=== PATIENT | male | born 1980 | race Two or more races ===

== ENCOUNTER → 2020-06-05 08:34 | Outpatient (BNVA) | payer BC, SELFPAY | PROVIDERS: PCP Nurse Practitioner Family; Referring Provider Nurse Practitioner Family; Visit Provider Nurse Practitioner | DX: Z76.89 Persons encountering health services in other specified circumstances (principal) ==

== ENCOUNTER 2020-06-25 07:39 | Day surgery (SDC) | payer BC, SELFPAY ==
[2020-06-25 08:02] VITALS: BMI 21.9
[2020-06-25 08:08] VITALS: BP 112/75; PULSE 53; RESP 16; TEMP 36.5; O2SAT 96
--- NOTE | 2020-06-25 08:19 | P.CONAN_ITS ---
FORMERLY [facility] Past Medical History Medical History History of diverticulitis Recent surgical procedure on lower extremity Smoker Family History Family History Father No problems noted. Mother No problems noted. Surgical History Surgical History History of facial surgery S/P hernia repair Social History Social History Alcohol intake: never Smoking Status: Current every day smoker Tobacco Type: Cigarette Packs Per Day: 0.25 Cigarettes Per Day: 5.0 Years Smoked: 8 Smoked in Last 30 Days: Yes Use of substances other than those prescribed or required for medical reasons: Yes Substance Use Type: Marijuana Substance Use Frequency: Occasionally Advance Directives: No Advance Directives Information Provided: Yes Meds Allergies Allergy/AdvReac Type Severity Reaction Status Date / Time No Known Allergies Allergy Verified 06/25/20 07:54 Home Medications Medication Instructions Recorded Confirmed Type mv,Ca,cpc-emmp-AC-lycopene tab PO 06/25/20 06/25/20 History [Centrum Men] Exam Exam Date and Time: June 25, 2020818 Height,Weight and Vital Signs: Height 5 ft 10 in Weight 69.4 kg Last Vital Signs Temp 97.7 F 06/25/20 08:08 Pulse 53 06/25/20 08:08 Resp 16 06/25/20 08:08 BP 112/75 06/25/20 08:08 Pulse Ox 96 06/25/20 08:08 Airway Mallampati Class: II TM Dist: >3cm Neck ROM: Full Loose/Missing/Broken Teeth: No (Rrr+[id number]) Heart: cta b/l Assessment and Plan Assessment Anesthesia Assessment: Anesthesia Plan Discussed, PAT Visit and Chart Reviewed Final Anesthetic Review NPO: Yes ASA Class: II Final Preanesthetic Review: No Changes in Pt Med Stat, Meds/Allgs Chart Reviewed, Consent Obtained/Reviewed and Anes Risks/Benef Reviewed Patient Risk: Low Procedure Risk: Low Assessment/Block/Sedation in SS: Assess/Block/Sedation-SS Anesthetic Plan Anesthetic Plan: MAC: Disposition: Standard PACU
--- NOTE | 2020-06-25 08:20 | P.OP_ITS ---
Operative Note Operative Note Narrative: Date of procedure: 06/25/20 Post-op diagnosis: other (Gastritis, colon polyp, diverticulosis, hemorrhoids) Procedure: FLEXIBLE TRANSORAL UPPER GASTROINTESTINAL ENDOSCOPY WITH BIOPSIES AND COLONOSCOPY TILL CECUM WITH BIOPSY UPPER ENDOSCOPY Consent: Indications for the procedure and potential complications of bleeding, perforation, reaction to medications and missed diagnosis were discussed with the patient and informed consent was obtained. Instrument: Olympus GIF H 190 mid size upper endoscope and Olympus PCF H 190 L variable stiffness pediatric colonoscope Monitoring: Vital signs and clinical assessment, continuous EKG monitoring, Pulse oximetry, Carbon Dioxide monitoring and blood pressure monitoring were done throughout the procedure. Procedure: The patient was placed in the left lateral decubitis position and pre-procedure medications were administered and a bite block was placed. The endoscope was inserted into the mouth and advanced under direct vision to the third part of duodenum. Mid size upper endoscope was removed and a pediatric colonoscope was passed to the proximal jejunum. A careful inspection was made as the upper endoscope was withdrawn including a retroflexed examination of the proximal stomach; Findings and interventions are described below. Findings: Larynx: Normal Esophagus: GE junction at 44 cms. No esophagitis or Barretts Stomach: Mild gastric erythema. Biopsies were obtained. Grade 2 flap valve on retroflexed examination of the cardia. Duodenum/jejunum: Normal bulb, descending duodenum and proximal jejunum - biopsies were obtained from 4th part of duodenum. Intervention: Biopsies as noted above COLONOSCOPY PROCEDURE NOTE Consent: Indications for the procedure and potential complications of bleeding, perforation, reaction to medications and missed diagnosis were discussed with the patient and informed consent was obtained. Instrument: Olympus PCF H 190 L variable stiffness pediatric colonoscope Monitoring: Vital signs and clinical assessment, intermittent blood pressure monitoring, continuous EKG monitoring, Pulse oximetry and Carbon Dioxide monitoring were done throughout the procedure. Colon withdrawl time was 18 minutes. Procedure: The patient was placed in the left lateral decubitis position and pre-procedure medications were administered. After a digital rectal examination of the ano-rectum, the video colonoscope was inserted into the rectum and advanced through the colon to the cecum. The colonoscope was slowly withdrawn in a retrograde panoramic fashion and the colon mucosa was carefully examined including a retroflexed view of the rectum. Findings and interventions are described below. Procedure Difficulty: Without difficulty Findings: Terminal Ileum: Distal 8 to 10 cms was examined and appeared normal Cecum: Normal Ascending Colon: Normal Transverse Colon: A 4-5 mm sessile polyp removed with a cold bx Descending Colon: Moderate diverticulosis Sigmoid Colon: Moderate diverticulosis Rectum: Normal Ano-rectum: Small internal hemorrhoids Colon preparation: Good after some irrigation. Impression and Post Procedure Diagnosis: Endoscopy Findings: STOMACH: Mild gastritis DUODENUM: Normal - biopsied. Colonoscopy Findings: One small polyps removed Moderate diverticulosis seen in the left colon Small hemorrhoids on retroflexed exam. Plan: Await pathology results Patient has an appointment on 07/10/20 in the GI Clinic with Alexa Vega NP . Repeat Colonoscopy interval based on path results - in 5 years if polyps are adenomatous and 10 years if polyps are hyperplastic. Above findings were reviewed with the patient and colon polyps and diverticulosis handouts were given in the discharge area Surgeon: Lauren Robb MD Anesthesia: MAC (Dr Dennis) Manager Marketing Sales: Garrett Masters Estimated blood loss (mL): 0 Pathology: other (A. Gastric antrum, B. duodenum, C. TC polyp x 1) Condition: stable Disposition: PACU
--- NOTE | 2020-06-25 08:20 | MHC.SHP ---
Pre-Procedural Eval Section A The patient is an INPATIENT: No The History & Physical has been completed within 30 days and I have reviewed it.: No Section B Chief Complaint: Diverticulitis Details of Present Illness: Chronic constipation, history of diverticulitis, abnormal CT scan of the duodenum Relevant Family History (Specify if Yes): No Relevant Social History: Tobacco Use ( former smoker) Present Medications: see Short Stay Collaborative assessment Medical History: No relevant PMH History of Previous Operations: Relevant previous surgery/procedure and date(s) (facial reconstruction leg surgery ) Allergies: Allergies Allergy/AdvReac Type Severity Reaction Status Date / Time No Known Allergies Allergy Verified 06/25/20 07:54 Review of Systems Sugical H&P ROS: Negative: Constitution and Cardiovascular and Yes, Specify: Gastrointestinal (constipation) Exam Surgical H&P Exam: Normal: Heart, Normal: Lungs and Normal: Extremities and Significant Findings: Abdomen (Minimal LLQ tenderness) Plan Diagnosis/Plan: Unchanged Patient has been examined and remains a candidate for the planned procedure
[2020-06-25] MEDS: Lactated Ringers 1,000 ML 100 ML IVCONT (08:33)
[2020-06-25 09:42] VITALS: BP 96/52; PULSE 54; RESP 16; TEMP 36.2; O2SAT 97
[2020-06-25 09:50] VITALS: BP 95/62; PULSE 45; RESP 16; O2SAT 100
--- NOTE | 2020-06-25 10:04 | HO.POSTANES ---
Post Anesthesia Evaluation Post Anesthesia Evaluation Vital Signs: Vital Signs Temp Pulse Resp BP Pulse Ox 06/25/20 09:50 45 L 16 95/62 100 06/25/20 09:42 97.2 F 54 16 96/52 L 97 06/25/20 08:08 97.7 F 53 16 112/75 96 Anesthesia: Monitored Mental Status: Awake Pain Control: Satisfactory Nausea/Vomiting: None Hydration: Adequate Anesthesia-Related Issues: No Anes. Related Issues
[2020-06-25 10:05] VITALS: BP 95/68; PULSE 56; RESP 16; O2SAT 100
--- NOTE | 2020-06-25 10:18 | PC.NURSE ---
1015- AWAKE ALERT MICHELLE PO NO N/V NOTED MONITORS AND IVF DCD TOTAL IN IS 300 ML LR, ASST OOB TO BS CHAIR STEADY IV DC'D TIP INTACT PRESSURE AND DRESSING TO SITE. DRESSED SELF CALL VALDEZ IN REACH, PLAN TO AMB TO DISCHARGE.
== END 2020-06-25 10:43 | disposition home or self-care (01) ==
PROVIDERS: Visit Provider Internal Medicine Gastroenterology
PROC: (CPT 45380; principal; 2020-06-25 08:30)
DX: K57.92 Diverticulitis of intestine, part unspecified, without perforation or abscess without bleeding (principal); D12.3 Benign neoplasm of transverse colon; K57.30 Diverticulosis of large intestine without perforation or abscess without bleeding; K64.8 Other hemorrhoids; K59.04 Chronic idiopathic constipation; K29.60 Other gastritis without bleeding; F17.210 Nicotine dependence, cigarettes, uncomplicated
CPT/HCPCS: 45380; 88305; 88342

== ENCOUNTER → 2020-07-10 08:29 | Outpatient (BNVA) | payer BC, SELFPAY | PROVIDERS: Visit Provider Nurse Practitioner ==

== ENCOUNTER → 2020-07-10 08:29 | Outpatient (BNVA) | payer BC, SELFPAY | PROVIDERS: Visit Provider Nurse Practitioner | DX: Z76.89 Persons encountering health services in other specified circumstances (principal) ==

== ENCOUNTER 2020-08-02 07:44 | Emergency (ER) | payer BC, SELFPAY ==
[2020-08-02 07:50] VITALS: BP 141/97; PULSE 78; RESP 16; TEMP 36.6; O2SAT 98; BMI 22.5
--- NOTE | 2020-08-02 08:30 | ED.GENADULT ---
HPI - General Adult General Chief complaint: General Medical Stated complaint: covid symptoms Time Seen by Provider: 08/02/20 08:09 Source: patient Mode of arrival: ambulatory Limitations: no limitations History of Present Illness HPI narrative: 40-year-old male presenting to the ED with URI complaints which includes chills, body aches, sore throat and a dry cough for the past 2 days. 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 Denies recent travel. Denies any other symptoms complaints or concerns at this time. Related Data Home Medications Medication Instructions Recorded Confirmed Centrum Men tab PO 06/25/20 06/25/20 Previous Rx's Medication Instructions Recorded acetaminophen [Tylenol] 650 mg PO Q6H PRN #10 tab 08/02/20 azithromycin See Rx Instructions .ROUTE 08/02/20 .COMPLEX #6 tab cyclobenzaprine 10 mg PO TID PRN #10 tab 08/02/20 ibuprofen 800 mg PO Q8H PRN #14 tab 08/02/20 Allergies Allergy/AdvReac Type Severity Reaction Status Date / Time No Known Allergies Allergy Verified 07/10/20 08:29 Review of Systems Review of Systems: Constitutional : No Fever, + Chills, No fatigue, No Malaise ENT/Mouth : + sore throat, No runny nose Eyes: No Discharge Cardiovascular : No Chest Pain, No SOB Respiratory : + Cough, No Sputum, No Wheezing, No Smoke Exposure, No Dyspnea Gastrointestinal : No Nausea, No Vomiting, No Diarrhea Genitourinary : No irregular bleeding, No Dysuria, No Urinary Frequency, No Hematuria, No Urinary Incontinence, No Urgency, No Flank Pain, Musculoskeletal : No Myalgia Skin : No rash Neuro : No Headache Yes all other systems are reviewed and are negative [facility] Past Medical History Attestation statement: The following information was validated with the patient. Medical History Diverticulosis History of diverticulitis Recent surgical procedure on lower extremity Smoker Surgical History History of facial surgery Hx of colonoscopy Hx of esophagogastroduodenoscopy S/P hernia repair Family History Family History Father No problems noted. Mother No problems noted. Social History Social History Alcohol intake: current Alcohol intake frequency: holidays/special occasions only Smoking Status: Current every day smoker Tobacco Type: Cigarette Packs Per Day: 0.25 Cigarettes Per Day: 5.0 Years Smoked: 8 Use of substances other than those prescribed or required for medical reasons: No Substance Use Type: Marijuana Advance Directives: No Advance Directives Information Provided: Yes Physical Exam Vital Signs: Vital Signs: Last Vital Signs Temp 97.8 F 08/02/20 07:50 Pulse 78 08/02/20 07:50 Resp 16 08/02/20 07:50 BP 141/97 H 08/02/20 07:50 Pulse Ox 98 08/02/20 07:50 Body Mass Index 22.5 vital signs have been reviewed as normal and appeared to be correct. Blood pressure normal. Heart rate normal. Respiration rate normal. Temperature normal. Oxygen saturation normal. Appearance: Alert. Oriented X3. No acute distress. Head: Normal external exam. Normocephalic. Eyes: PERRLA. EOMI. Conjunctiva and sclera normal. Eyelids normal. ENT: EAC normal. TM's Normal. Pharynx normal. Uvula midline. Moist mucous membranes. No trismus noted. No drooling noted. No muffled voice noted. Neck: Normal inspection. Neck supple. FROM. No adenopathy. No meningeal signs. CVS: Normal heart rate and rhythm. Heart sound normal. No murmurs noted. Pulses normal throughout. Respiratory: No respiratory distress. Painless inspiration. Breath sounds normal. No wheezes/rales/rhonchi noted. Chest nontender. No accessory muscle usage noted or decreased air movement noted. Back: Full range of motion noted. Skin: Skin warm and dry. Normal skin color. Normal skin turgor. No rashes/lesions/lacerations noted. Extremities: Extremities exhibit normal range of motion. Extremities nontender. Neuro: Oriented X 3. No motor deficit. No sensory deficit. Reflexes normal. Medical Decision Making Medical Records Medical records reviewed: Yes I reviewed the patient's medical records. Lab Data Lab results reviewed: Yes I reviewed the patient's lab results. Discharge Plan Discharge Clinical Impression: Acute viral syndrome Patient Disposition: Home, Self-Care Instructions: Viral Syndrome (ED), COVID-19 (Coronavirus Disease 2019) (ED) Additional Instructions: Based on your symptoms and history we have sent a COVID-19. Although your RESULT IS PENDING at this time. RESULTS should return within 72 hours. At this time you will be contacted with either NEGATIVE OR POSITIVE results. -Please wait until we contact you for your results. At this time you will be okay for discharge. Please plan for self quarantine for up to 14 days. Do not expose yourself to others. You may not go to work. If testing does come back negative you may return to activities as long as you are no longer having any symptoms for at least 3 days. Please continue to follow cold instructions and wash your hands frequently. You may take Tylenol as directed on the bottle for pain or fever. Patient seen in the emergency department on 08/02/2020 and should be excused from work until negative test results AND until 72 hours without any symptoms AND at least 10 days have passed since symptoms first appeared or since last exposure to COVID-19 positive patient CDC Guidelines for home isolation: - Stay away from others - WEAR A MASK if you are sick AND STAY HOME - Cover your mouth and nose with a tissue when you cough or sneeze. Dispose of tissues in a lined trash can and wash your hands immediately with soap and water for at least 20 seconds. If soap and water are not available, clean hands with alcohol-based hand gravure press operator that contains at least 60% alcohol. - Clean your hands often with soap and water for at least 20 seconds - Avoid touching your eyes, nose and mouth with unwashed hands - Do not share dishes, drinking glasses, cups, eating utensils, towels, or bedding with other people in your home. After using these items, wash them thoroughly with soap and water or put in the welding machine operator electroslag. - Clean high-touch surfaces in your isolation area ( sick room and bathroom) every day; let a caregiver clean and disinfect high-touch surfaces in other areas of the home. Clean the area or item with soap and water or another detergent if it is dirty. Then, use a household disinfectant. - Limit contact with pets and animals: If you must care for a pet, wash your hands before and after interacting with them). Prescriptions: New cyclobenzaprine 10 mg tablet 10 mg PO TID PRN (Reason: muscle spasm) Qty: 10 RF: 0 acetaminophen [Tylenol] 325 mg tablet 650 mg PO Q6H PRN (Reason: fever or pain) Qty: 10 RF: 0 azithromycin 250 mg tablet See Rx Instructions .ROUTE .COMPLEX Qty: 6 RF: 0 ibuprofen 800 mg tablet 800 mg PO Q8H PRN (Reason: pain) Qty: 14 RF: 0 No Action Centrum Men 8 mg iron- 200 mcg-600 mcg Tablet PO RF: 0 Referrals: Physician,Unknown [Primary Care Provider] - 2 days (your pcp ) Stand Alone Forms: Work/School Release
[2020-08-02 09:12] LABS: Influenza A PCR NEGATIVE (Negative); Influenza B PCR NEGATIVE (Negative); Resp Syncy Virus RNA Qual PCR NEGATIVE (Negative); SARS COV2 PCR INHOUSE NEGATIVE (Negative)
== END 2020-08-02 08:38 | disposition home or self-care (01) ==
PROVIDERS: Physician Assistant Medical; Emergency Provider Emergency Medicine Emergency Medical Services
DX: B34.9 Viral infection, unspecified (principal); Z20.828 Contact with and (suspected) exposure to other viral communicable diseases; J02.9 Acute pharyngitis, unspecified; F17.200 Nicotine dependence, unspecified, uncomplicated
CPT/HCPCS: 0241U; 99283; 99284

== ENCOUNTER 2020-12-21 15:02 | Emergency (ER) | payer BC, SELFPAY ==
--- NOTE | ~2020-12-21 | CT_ITS ---
EXAMINATION: CT abdomen pelvis w con CLINICAL INFORMATION: Reason for Exam LLQ pain COMPARISON: No prior CT available for comparison. TECHNIQUE: Multidetector volumetric imaging was performed from the superior aspect of the liver through the pubic symphysis 85 mL Omnipaque 350 injected. Sagittal and coronal reformatted images were obtained on the technologist's workstation. This CT examination was performed using dose optimization techniques as appropriate, variously including the following: *Automated exposure control *Adjustment of mA and/or kV according to patient size (this includes techniques or standardized protocols for targeted exams where dose is matched to indication/reason for exam; i.e. extremities or head) *Use of iterative reconstruction technique DLP: 339 mGy-cm FINDINGS: LOWER THORAX: Included lung bases are clear. HEPATOBILIARY: No focal hepatic lesions. No biliary ductal dilatation. GALLBLADDER: Gallbladder unremarkable. SPLEEN: Spleen is normal in size. PANCREAS: No focal mass or ductal dilatation. STOMACH AND GASTROINTESTINAL TRACT: Stomach is grossly unremarkable. There is a segment of the sigmoid colon roughly 12 cm which exhibits circumferential wall thickening edema and mild pericolic fat stranding. Nonspecific CT appearance however would suggest diffuse inflammation which could be sequela of infection colitis versus inflammatory bowel disease IBD among others. No CT evidence of appendicitis. ADRENALS: No adrenal nodules. KIDNEYS/URETERS: No hydronephrosis, stones or solid mass lesions. URINARY BLADDER: Partially decompressed. PELVIC VISCERA: Unremarkable PERITONEUM: No free air or fluid. LYMPH NODES: No lymphadenopathy. VASCULAR:Abdominal aorta normal in size, no aneurysm found. BONES, ABDOMINAL WALL AND SOFT TISSUES: Age-appropriate changes of the spine and skeletal system, no destructive osteolytic or osteosclerotic bone lesion found CT/CT abdomen pelvis w con IMPRESSION: Extensive circumferential wall thickening edema swelling of the sigmoid colon along with mild pericolic fat stranding and fluid suggesting colitis, which could be sequela of infection versus inflammatory among others. Please correlate clinically. No CT evidence of abscess. No evidence of significant diverticular disease. No CT evidence of bowel perforation. No free air. Remainder of the CT scan otherwise normal.
[2020-12-21 15:12] VITALS: BP 119/72; PULSE 62; RESP 15; TEMP 36.9; O2SAT 99; BMI 22.5
[2020-12-21 16:00] VITALS: BP 120/82; PULSE 54; RESP 18; TEMP 36.9; O2SAT 100
--- NOTE | 2020-12-21 16:09 | PC.NURSE ---
Pt report no BM since 2 days ago. He has since been having some small amounts of mucous discharge from his rectum when he attempts to have a BM.
--- NOTE | 2020-12-21 16:31 | ED.ABDPAIN ---
HPI - Abdominal Pain General Chief Complaint: Abdominal Pain Stated Complaint: Colitis Time Seen by Provider: 12/21/20 16:19 Source: patient Mode of arrival: ambulatory Limitations: no limitations History of Present Illness HPI narrative: Patient comes emergency room complaining of left lower quadrant pain for 1 week. Patient states he is known to have episodes of diverticulitis. Patient states he has been taking antibiotic, does not remember the name, states he had leftover antibiotic from his last episode of colitis. Patient states usually his symptoms resolved within 3 days, however this time it has been ongoing for about a week. Patient also complaining of nausea and vomiting. Of dysuria. MD elicited complaint: abdominal pain Related Data Home Medications Medication Instructions Recorded Confirmed Centrum Men tab PO 06/25/20 06/25/20 Previous Rx's Medication Instructions Recorded acetaminophen [Tylenol] 650 mg PO Q6H PRN #10 tab 08/02/20 azithromycin See Rx Instructions .ROUTE 08/02/20 .COMPLEX #6 tab cyclobenzaprine 10 mg PO TID PRN #10 tab 08/02/20 ibuprofen 800 mg PO Q8H PRN #14 tab 08/02/20 ciprofloxacin HCl 500 mg PO BID #20 tab 12/21/20 metronidazole 500 mg PO BID #20 tab 12/21/20 tramadol 50 mg PO TID PRN #14 tab 12/21/20 Allergies Allergy/AdvReac Type Severity Reaction Status Date / Time No Known Allergies Allergy Verified 07/10/20 08:29 Review of Systems Review of Systems Constitutional : No Weight loss, No Fever, No Chills, No Night Sweats, No Fatigue, No Malaise ENT/Mouth : No Hearing loss, No Ear Pain, No Nasal Congestion, No Sinus Pain, No Hoarseness, No sore throat, No Rhinorrhea, No Swallowing Difficulty Eyes: No Eye Pain, No Swelling, No Redness, No Foreign Body, No Discharge, No Vision Changes Cardiovascular : No Chest Pain, No SOB, No Dyspnea on Exertion, No Orthopnea, No Edema, No Palpitations Respiratory : No Cough, No Sputum, No Wheezing, No Smoke Exposure, No Dyspnea Gastrointestinal : Complaining of nausea vomiting, No Diarrhea, No Constipation, complaining of left lower quadrant pain, No Hematochezia, No Melena Genitourinary : no irregular bleeding, No Dysuria, No Urinary Frequency, No Hematuria, No Urinary Incontinence, No Urgency, No Flank Pain, No Urinary Flow Changes, No Hesitancy Musculoskeletal : No joint pain, No Myalgias, No Joint Swelling Skin : No Skin Lesions, No rash Neuro : No Weakness, No Numbness, No Paresthesias, No Loss of Consciousness, No Dizziness, No Headache Psych : No Anxiety/Panic, No Depression, No SI/HI/AH/VH, No Social Issues, Heme/Lymph: No Bruising, No Bleeding,No Lymphadenopathy Endocrine : No Polyuria, No Polydipsia, No Temperature Intolerance Physical Exam Vital Signs: Vital Signs: Last Vital Signs Temp 98.8 F 12/21/20 18:08 Pulse 53 12/21/20 18:08 Resp 18 12/21/20 18:08 BP 97/45 L 12/21/20 18:08 Pulse Ox 98 12/21/20 18:08 Body Mass Index 22.5 Appearance: Alert. Oriented X3. No acute distress. Eyes: Pupils equal, round and reactive to light. ENT: Pharynx normal. Neck: Normal inspection. Neck supple. No lymph nodes noted. No crepitus CVS: Normal heart rate and rhythm. Pulses normal. Normal S1 and S2 Respiratory: No respiratory distress. Breath sounds normal. No Wheezing. No rales Abdomen: Soft, tenderness to palpation over the left lower quadrant. No rigidity. No distention. Skin: Skin warm and dry. Normal skin color. Normal skin turgor. Extremities: No lower extremity edema. No lower extremity edema. No Lacerations. No Rash Neuro: Oriented X 3. No motor deficit. No sensory deficit. Moving all extermities. No slurred speech. Course Course Course Narrative: Patient states that he feels much better, discussed with the patient his colitis, patient was given the 1st dose of antibiotics p.o. in the emergency room, levofloxacin and metronidazole. 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 MDM - Abdominal Pain Lab Data Result diagrams: 12/21/20 16:45 12/21/20 16:45 Labs: Lab Results 12/21/20 12/21/20 12/21/20 Range/Units 16:45 16:45 18:28 WBC 10.0 (4.8-10.8) X10*3/uL RBC 5.06 (4.60-5.80) X10*6/uL Hgb 14.6 (14.0-18.0) g/dl Hct 45.7 (42-52) % MCV 90.3 (80-98) fL MCH 28.9 (27.0-33.0) pg MCHC 31.9 (31.0-36.0) g/dl RDW 12.8 (11.0-16.0) % Plt Count 220 (160-400) X10*3/uL MPV 9.9 (9.4-12.4) fL Immature Gran % (Auto) 0.2 (0.0-0.4) % Neut % (Auto) 71.8 (45-73) % Lymph % (Auto) 16.4 L (20-40) % [place] % (Auto) 10.9 (2-11) % Eos % (Auto) 0.4 (0-4) % Baso % (Auto) 0.3 (0-2) % Lymph # (Auto) 1.6 (1.2-4.9) X10*3/uL [place] # (Auto) 1.1 (0.1-1.2) X10*3/uL Eos # (Auto) 0.0 (0.0-0.4) X10*3/uL Baso # (Auto) 0.0 (0.0-0.2) X10*3/uL Abs Immat Gran (auto) 0.02 (0.00-0.03) X10*3/uL Absolute Neuts (auto) 7.2 (2.0-8.3) X10*3/uL Absolute Nucleated RBC 0.000 (0.0-0.012) X10*3/uL Nucleated RBC % (auto) 0.0 (0.0-0.2) /100WBC Sodium 138 (135-145) mmol/L Potassium 4.3 (3.3-5.1) mmol/L Chloride 101 (96-108) mmol/L Carbon Dioxide 27 (22-29) mmol/L Anion Gap 14 (12-20) BUN 12 (9-16) mg/dL Creatinine 0.86 (0.5-1.4) mg/dL Estim Creat Clear Calc 117.3 Estimated GFR > 60 Random Glucose 75 (60-115) mg/dL Calcium 9.4 (8.4-10.2) mg/dL Total Bilirubin 1.2 H (0.0-1.0) mg/dL Direct Bilirubin 0.4 (0.0-0.5) mg/dL AST 20 (5-37) U/L ALT 14 (0-40) U/L Alkaline Phosphatase 119 H (39-117) U/L Total Protein 7.4 (6.5-8.0) g/dL Albumin 4.4 (3.5-5.0) g/dL Lipase 25 (8-78) U/L Urine Color YELLOW Urine Appearance CLEAR Urine pH 6.0 (5.0-8.0) Ur Specific [place] 1.020 (1.005-1.025) Urine Protein NEG (NEG-TRACE) MG/DL Urine Glucose (UA) NEG (NEG) MG/DL Urine Ketones 5 (NEG) MG/DL Urine Blood TRACE (NEG) Urine Nitrite NEG (NEG) Ur Leukocyte Esterase NEG (NEG) Urine RBC 0-2 (0) /HPF Urine WBC 0 (0-4) /HPF Ur Squamous Epith Cells NONE /LPF Urine Bacteria NONE /LPF Imaging Data CT scan - abdomen: Radiologist's impression: FINDINGS: LOWER THORAX: Included lung bases are clear. HEPATOBILIARY: No focal hepatic lesions. No biliary ductal dilatation. GALLBLADDER: Gallbladder unremarkable. SPLEEN: Spleen is normal in size. PANCREAS: No focal mass or ductal dilatation. STOMACH AND GASTROINTESTINAL TRACT: Stomach is grossly unremarkable. There is a segment of the sigmoid colon roughly 12 cm which exhibits circumferential wall thickening edema and mild pericolic fat stranding. Nonspecific CT appearance however would suggest diffuse inflammation which could be sequela of infection colitis versus inflammatory bowel disease IBD among others. No CT evidence of appendicitis. ADRENALS: No adrenal nodules. KIDNEYS/URETERS: No hydronephrosis, stones or solid mass lesions. URINARY BLADDER: Partially decompressed. PELVIC VISCERA: Unremarkable PERITONEUM: No free air or fluid. LYMPH NODES: No lymphadenopathy. VASCULAR:Abdominal aorta normal in size, no aneurysm found. BONES, ABDOMINAL WALL AND SOFT TISSUES: Age-appropriate changes of the spine and skeletal system, no destructive osteolytic or osteosclerotic bone lesion found CT/CT abdomen pelvis w con IMPRESSION: Extensive circumferential wall thickening edema swelling of the sigmoid colon along with mild pericolic fat stranding and fluid suggesting colitis, which could be sequela of infection versus inflammatory among others. Please correlate clinically. No CT evidence of abscess. No evidence of significant diverticular disease. No CT evidence of bowel perforation. No free air. Remainder of the CT scan otherwise normal. Discharge Plan Discharge Clinical Impression: Colitis Patient Disposition: Home, Self-Care Instructions: Colitis (ED) Prescriptions: New ciprofloxacin HCl 500 mg tablet 500 mg PO BID Qty: 20 RF: 0 metronidazole 500 mg tablet 500 mg PO BID Qty: 20 RF: 0 tramadol 50 mg tablet 50 mg PO TID PRN (Reason: pain) Qty: 14 RF: 0 No Action Centrum Men 8 mg iron- 200 mcg-600 mcg Tablet PO RF: 0 cyclobenzaprine 10 mg tablet 10 mg PO TID PRN (Reason: muscle spasm) Qty: 10 RF: 0 acetaminophen [Tylenol] 325 mg tablet 650 mg PO Q6H PRN (Reason: fever or pain) Qty: 10 RF: 0 azithromycin 250 mg tablet See Rx Instructions .ROUTE .COMPLEX Qty: 6 RF: 0 ibuprofen 800 mg tablet 800 mg PO Q8H PRN (Reason: pain) Qty: 14 RF: 0 Referrals: Lauren Robb MD [Physician] - 2 days PMF Past Medical History Medical History Diverticulosis History of diverticulitis Recent surgical procedure on lower extremity Smoker Surgical History History of facial surgery Hx of colonoscopy Hx of esophagogastroduodenoscopy S/P hernia repair Family History Family History Father No problems noted. Mother No problems noted. Social History Social History Alcohol intake: never Smoking Status: Former smoker Tobacco Type: Cigarette Packs Per Day: 0.25 Cigarettes Per Day: 5.0 Years Smoked: 8 Substance Use Type: Marijuana Substance Use Frequency: Occasionally Advance Directives: No Advance Directives Information Provided: Yes
[2020-12-21] MEDS: 0.9 % Sodium Chloride 1,000 ML 999 ML IVCONT (16:49)
[2020-12-21] MEDS: ondansetron HCL 4 MG/2 ML VIAL IVPUSH (16:52)
[2020-12-21] MEDS: Morphine Sulfate 4 MG/ML CARTRIDGE IVPUSH (16:52)
[2020-12-21 17:14] LABS: MANUAL DIFF FLAG NO
[2020-12-21 17:18] LABS: Basophils Percent Auto 0.3 % (0-2); Eosinophils Percent Auto 0.4 % (0-4); Hematocrit 45.7 % (42-52); Hemoglobin 14.6 g/dl (14.0-18.0); Imm Gran Abs Auto 0.02 X10*3/uL (0.00-0.03); Imm Gran Pct Auto 0.2 % (0.0-0.4); Lymphocytes Absolute Auto 1.6 X10*3/uL (1.2-4.9); Lymphocytes Percent Auto 16.4 % (20-40); Mean Corpuscular HGB Conc 31.9 g/dl (31.0-36.0); Mean Corpuscular Hemoglobin 28.9 pg (27.0-33.0); Mean Corpuscular Volume 90.3 fL (80-98); Mean Platelet Volume 9.9 fL (9.4-12.4); Monocytes Absolute Auto 1.1 X10*3/uL (0.1-1.2); Monocytes Percent Auto 10.9 % (2-11); Neutrophils Absolute Auto 7.2 X10*3/uL (2.0-8.3); Neutrophils Percent Auto 71.8 % (45-73); Platelet Count 220 X10*3/uL (160-400); Red Blood Count 5.06 X10*6/uL (4.60-5.80); Red Cell Distribution Width 12.8 % (11.0-16.0)
[2020-12-21 17:43] LABS: Alanine Aminotransferase 14 U/L (0-40); Albumin Level 4.4 g/dL (3.5-5.0); Alkaline Phosphatase 119 U/L (39-117); Anion Gap 14 (12-20); Aspartate Amino Transferase 20 U/L (5-37); Bilirubin Direct 0.4 mg/dL (0.0-0.5); Bilirubin Total 1.2 mg/dL (0.0-1.0); Blood Urea Nitrogen 12 mg/dL (9-16); Calcium 9.4 mg/dL (8.4-10.2); Carbon Dioxide 27 mmol/L (22-29); Chloride 101 mmol/L (96-108); Creatinine Clr Calc Pharmacy 117.3; Estimated Glomerular Filt Rate > 60; Glucose Random 75 mg/dL (60-115); Lipase 25 U/L (8-78); Potassium 4.3 mmol/L (3.3-5.1); Sodium 138 mmol/L (135-145); Total Protein 7.4 g/dL (6.5-8.0)
[2020-12-21 18:08] VITALS: BP 97/45; PULSE 53; RESP 18; TEMP 37.1; O2SAT 98
[2020-12-21 18:42] LABS: Glucose Urine UA NEG (NEG); Leukocyte Esterase Urine NEG (NEG); Nitrite Urine NEG (NEG); Urine Blood TRACE (NEG); Urine Ketones 5 MG/DL (NEG); Urine Protein NEG (NEG-TRACE)
[2020-12-21 18:43] LABS: Appearance Urine CLEAR; Color Urine YELLOW
[2020-12-21] MEDS: iohexoL 350 MG/ML 100 ML INFUS..BTL IV (18:44)
[2020-12-21 18:50] LABS: RBC Urine 0-2 /HPF (0); WBC Urine 0 /HPF (0-4)
[2020-12-21] MEDS: metroNIDAZOLE 500 MG TABLET PO (19:51)
[2020-12-21] MEDS: levoFLOXacin 500 MG TABLET PO (19:51)
== END 2020-12-21 20:20 | disposition home or self-care (01) ==
PROVIDERS: Emergency Provider Emergency Medicine
DX: K52.9 Noninfective gastroenteritis and colitis, unspecified (principal); R10.32 Left lower quadrant pain
CPT/HCPCS: 36415; 74177; 80048; 80076; 81001; 83690; 85025; 96361; 96374; 96375; 99284; J2270; J2405; Q9967

== ENCOUNTER → 2020-12-27 13:46 | Outpatient (BNVA) | payer BC, SELFPAY | PROVIDERS: Visit Provider Nurse Practitioner ==

== ENCOUNTER → 2021-03-07 14:02 | Outpatient (BNVA) | payer BC, SELFPAY | PROVIDERS: Visit Provider Nurse Practitioner ==

== ENCOUNTER 2021-03-17 | Outpatient (REF) | payer BC, SELFPAY | END 2021-03-17 00:01 | disposition home or self-care (01) | LOC: HO.LNP | PROVIDERS: Visit Provider Hospitalist | DX: Z20.822 Contact with and (suspected) exposure to COVID-19 (principal); B34.9 Viral infection, unspecified | CPT/HCPCS: U0003; U0005 ==

== ENCOUNTER → 2021-09-11 10:44 | Outpatient (BNVA) | payer MEDICAID, SELFPAY | PROVIDERS: PCP Nurse Practitioner Family; Referring Provider Nurse Practitioner Family; Visit Provider Nurse Practitioner | DX: K59.04 Chronic idiopathic constipation (principal); K57.33 Diverticulitis of large intestine without perforation or abscess with bleeding | CPT/HCPCS: 99212 ==

== ENCOUNTER 2021-10-08 15:21 | Outpatient (REF) | payer OTHER, SELFPAY ==
[2021-10-08 17:38] LABS: Blood Urea Nitrogen 11 mg/dL (9-16); Estimated Glomerular Filt Rate > 60
== END 2021-10-08 15:22 | disposition home or self-care (01) ==
LOC: HO.LAB 15:21
PROVIDERS: PCP Internal Medicine; Referring Provider Internal Medicine; Visit Provider Surgery
DX: K57.90 Diverticulosis of intestine, part unspecified, without perforation or abscess without bleeding (principal)
CPT/HCPCS: 36415; 82565; 84520; 99212

== ENCOUNTER 2022-02-09 22:25 | Emergency (ER) | payer OTHER, SELFPAY ==
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
[2022-02-09 22:57] VITALS: BP 126/75; PULSE 86; RESP 16; TEMP 35.9; O2SAT 97; BMI 21.7
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
[2022-02-10 00:38] VITALS: BP 110/59; PULSE 65; RESP 16; TEMP 36.8; O2SAT 96
[2022-02-10] MEDS: Diphth,Pertus(ACell),Tet Adult 0.5 ML SYRINGE IM (01:43)
== END 2022-02-10 02:18 | disposition home or self-care (01) ==
PROVIDERS: Emergency Provider Emergency Medicine
DX: S30.0XXA Contusion of lower back and pelvis, initial encounter (principal); S71.102A Unspecified open wound, left thigh, initial encounter; V28.4XXA Motorcycle driver injured in noncollision transport accident in traffic accident, initial encounter; Y93.9 Activity, unspecified; Y92.410 Unspecified street and highway as the place of occurrence of the external cause; Y99.9 Unspecified external cause status
CPT/HCPCS: 72100; 72170; 90471; 90715; 99282; 99284

== ENCOUNTER 2022-10-21 15:28 | Emergency (ER) | payer OTHER, SELFPAY ==
[2022-10-21 16:16] VITALS: BP 139/86; PULSE 74; RESP 16; TEMP 37.2; O2SAT 95; BMI 20.8
--- NOTE | 2022-10-21 16:16 | ED_ITS ---
HPI - URI/Sore Throat General Chief Complaint: Upper Respiratory Symptoms <MICHELLE Curtis Last Filed: 10/21/22 16:20> Stated Complaint: Sore Throat <MCIHELLE Curtis - Last Filed: 10/21/22 16:20> Time Seen by Provider: 10/21/22 17:36 <MICHELLE Curtis Last Filed: 10/21/22 16:20> Source: patient <DO Agusto Baez Last Filed: 10/21/22 17:49> Mode of arrival: ambulatory <DO Agusto Baez Last Filed: 10/21/22 17:49> Limitations: no limitations <DO Agusto Baez Last Filed: 10/21/22 17:49> History of Present Illness HPI Narrative: 42-year-old male with multiple complaints he states he has sore throat for the past 6 days. Patient is concerned that he has an infection within his nodes. He states he has friends that have had that issue in the past. Patient had a strep swab done on triage is negative patient was weaned of this and the antibiotics that his throat normal which states that he has got pain with swelling and pain mostly at night as well as issues with his ears. He states he repeated his right eardrum years ago and since then has had issues with his right ear and waxy buildup. He denies any new injuries he states he can hear. <Jaleel Berry DO - Last Filed: 10/21/22 17:49> MD elicited complaint: sore throat <DO Agusto Baez Last Filed: 10/21/22 17:49> Related Data Home Medications: Previous Rx's Medication Instructions Recorded levofloxacin 500 mg tablet 500 mg PO DAILY #14 tabs 09/11/21 metronidazole 500 mg tablet 500 mg PO TID 14 days #42 tabs 09/11/21 naproxen 500 mg tablet 500 mg PO BID PRN pain #30 tabs 02/10/22 acetaminophen 325 mg tablet 325 mg PO QID PRN pain #90 tabs 10/21/22 (Tylenol) <MICHELLE Curtis Last Filed: 10/21/22 16:20> Allergies/Adverse Reactions: Allergies Allergy/AdvReac Type Severity Reaction Status Date / Time No Known Allergies Allergy Verified 10/21/22 16:16 <MICHELLE Curtis - Last Filed: 10/21/22 16:20> Review of Systems Review of Systems: Review of systems: General: Patient denies any fever chills recent illness or falls Musculoskeletal: Denies back pain or body aches or other injuries HEENT: denies headache, runny nose, ear pain Respiratory: denies shortness of breath, cough Cardiovascular: no chest pain or palpitations : denies dysuria, frequency Abdomen: no nausea vomiting denies abdominal pain Extremities: no swelling, no pain Skin: no diaphoresis <Jaleel Berry DO - Last Filed: 10/21/22 17:49> Yes all other systems are reviewed and are negative <Jaleel Berry DO - Last Filed: 10/21/22 17:49> [facility] Past Medical History Medical History: Medical History History of diverticulitis Recent surgical procedure on lower extremity Smoker <MICHELLE Curtis - Last Filed: 10/21/22 16:20> Surgical History: Surgical History History of facial surgery Hx of colonoscopy Hx of esophagogastroduodenoscopy S/P hernia repair <MICHELLE Curtis - Last Filed: 10/21/22 16:20> Family History Family History: Family History Father No problems noted. Mother No problems noted. <MICHELLE Curtis - Last Filed: 10/21/22 16:20> Social History Social History: Social History Alcohol intake: never Cigarette Packs Per Day: 0.25 Cigarettes Per Day: 5.0 Years Smoked: 8 Substance Use Type: Marijuana <MICHELLE Curtis - Last Filed: 10/21/22 16:20> Physical Exam Vital Signs: Vital Signs: Last Vital Signs Temp 99.0 F 10/21/22 16:16 Pulse 74 10/21/22 16:16 Resp 16 10/21/22 16:16 BP 139/86 10/21/22 16:16 Pulse Ox 95 10/21/22 16:16 O2 Del Method 10/21/22 16:16 BMI result Body Mass Index 20.8 <MICHELLE Curtis Last Filed: 10/21/22 16:20> Vital Signs: Last Vital Signs Temp 99.0 F 10/21/22 16:16 Pulse 74 10/21/22 16:16 Resp 16 10/21/22 16:16 BP 139/86 10/21/22 16:16 Pulse Ox 95 10/21/22 16:16 O2 Del Method 10/21/22 16:16 BMI result Body Mass Index 20.8 <Jaleel Berry DO - Last Filed: 10/21/22 17:49> General: Well-appearing well-nourished in no signs of distress HEENT: Normocephalic atraumatic small lymphadenopathy bilateral cervical area bilateral cerumen buildup worse on the right than left Neck: No signs of JVD, no masses no tenderness or lymphadenopathy Cardiovascular: Regular rate and rhythm Respiratory: Clear to auscultation bilaterally Abdomen: Soft nontender no masses Extremities: Normal pedal pulses no signs of edema Skin: Dry warm no rashes Back: No tenderness full ROM <DO Agusto Baez Last Filed: 10/21/22 17:49> Course Course Course Narrative: RME - 42 y/o male with history of diverticulitis, colitis, constipation, who presents to the ER with complaints of sore throat x 6 days. Patient states pain with swallowing. Oral pharynx is erythematous. Uvula is midline. Airway patent. Plan: Strep test swab collected. <MICHELLE Curtis - Last Filed: 10/21/22 16:20> Medical Decision Making Medical Decision Making MDM Narrative: I spend the patient is could be mono patient does not want to have mono swab blood work looks otherwise well and I think he has any for antibiotics patient does have bilateral cerumen impaction but a cousin in for me to disimpact at this time <DO Agusto Baez Last Filed: 10/21/22 17:49> Differential Diagnosis Differential Diagnoses: The differential diagnosis associated with the presentation includes <Jaleel Berry DO - Last Filed: 10/21/22 17:49> Strep versus upper respiratory infection patient looks otherwise well <Jaleel Berry DO - Last Filed: 10/21/22 17:49> Lab Data Labs: Lab Results 10/21/22 Range/Units 16:24 S. pyogenes GrpA JANIE Negative (Negative) <MICHELLE Curtis - Last Filed: 10/21/22 16:20> Lab Results 10/21/22 Range/Units 16:24 S. pyogenes GrpA JANIE Negative (Negative) <Jaleel Berry DO - Last Filed: 10/21/22 17:49> Discharge Plan Discharge Clinical Impression: Upper respiratory infection, Pharyngitis, Cerumen impaction <MICHELLE Curtis - Last Filed: 10/21/22 16:20> Patient Disposition: Home, Self-Care <MICHELLE Curtis - Last Filed: 10/21/22 16:20> Instructions: Upper Respiratory Infection (ED), Pharyngitis (ED) <MICHELLE Curtis - Last Filed: 10/21/22 16:20> Additional Instructions: Please call to follow up with your doctor. If you have any other concerns please return to the ED. <MICHELLE Curtis - Last Filed: 10/21/22 16:20> Prescriptions: New acetaminophen [Tylenol] 325 mg tablet 325 mg PO QID PRN (Reason: pain) Qty: 90 0RF No Action naproxen 500 mg tablet 500 mg PO BID PRN (Reason: pain) Qty: 30 0RF levofloxacin 500 mg tablet 500 mg PO DAILY Qty: 14 0RF metronidazole 500 mg tablet 500 mg PO TID 14 Days Qty: 42 0RF <MICHELLE Curtis - Last Filed: 10/21/22 16:20>
[2022-10-21 16:46] LABS: IDNOW Serial# 6674DD1D; Strep A Nucleic Acid Negative (Negative)
== END 2022-10-21 17:57 | disposition home or self-care (01) ==
PROVIDERS: Physician Assistant; Emergency Provider Student in an Organized Health Care Education/Training Program
DX: J06.9 Acute upper respiratory infection, unspecified (principal); J02.9 Acute pharyngitis, unspecified; H61.23 Impacted cerumen, bilateral; F17.210 Nicotine dependence, cigarettes, uncomplicated
CPT/HCPCS: 36415; 87651; 99282; 99283

== ENCOUNTER 2022-10-28 15:15 | Emergency (ER) | payer OTHER, SELFPAY ==
[2022-10-28 16:09] VITALS: BP 121/72; PULSE 60; RESP 16; TEMP 36.7; O2SAT 98; BMI 22.1
--- NOTE | 2022-10-28 16:09 | ED_ITS ---
HPI - Back Pain/Injury General Chief Complaint: Back Pain/Injury Stated Complaint: Injured back Time Seen by Provider: 10/28/22 16:14 Source: patient Mode of arrival: ambulatory History of Present Illness HPI Narrative: 42-year-old male with no significant past medical history presenting to the ED complaining of low back pain greater on the right s/p shoveling heavy snow yesterday. Denies direct injury/trauma or fall, numbness, tingling, weakness, urine incontinence retention, fever MD elicited complaint: back injury Onset (ago): day(s) Related Data Previous Rx's Medication Instructions Recorded levofloxacin 500 mg tablet 500 mg PO DAILY #14 tabs 09/11/21 metronidazole 500 mg tablet 500 mg PO TID 14 days #42 tabs 09/11/21 naproxen 500 mg tablet 500 mg PO BID PRN pain #30 tabs 02/10/22 acetaminophen 325 mg tablet 325 mg PO QID PRN pain #90 tabs 10/21/22 (Tylenol) acetaminophen 500 mg tablet 500 mg PO Q6H PRN fever or pain 10/28/22 (Tylenol Extra Strength) #14 tabs cyclobenzaprine 5 mg tablet 5 mg PO Q8H PRN pain (scale score 10/28/22 7-10) 5 days #14 tabs lidocaine 5 % topical patch 1 patch topical DAILY PRN pain #30 10/28/22 (Lidoderm) ea naproxen 500 mg tablet 500 mg PO BID PRN pain 10 days #20 10/28/22 tabs Allergies Allergy/AdvReac Type Severity Reaction Status Date / Time No Known Allergies Allergy Verified 10/28/22 16:09 Review of Systems Review of Systems: Constitutional: No Fever, No Chills ENT/Mouth: No Ear Pain, No Nasal Congestion, No sore throat, No Rhinorrhea, No Swallowing Difficulty Cardiovascular: No Chest Pain, No SOB Respiratory: No Cough, No Sputum Gastrointestinal: No Nausea, No Vomiting, No Diarrhea, No Constipation, No Abdominal pain Genitourinary: No Dysuria, No Urinary Frequency, No Hematuria, No Urinary Incontinence/retention, No Flank Pain Musculoskeletal: + joint pain, No Myalgias, No Joint Swelling Skin: No Skin Lesions, No rash Neuro: No Weakness, No Numbness, No Paresthesias Yes all other systems are reviewed and are negative Constitutional: Constitutional: Reports as per HPI Neurologic: Denies Abnormal speech present [facility] Past Medical History Attestation statement: The following information was validated with the patient. Medical History Diverticular disease History of diverticulitis Recent surgical procedure on lower extremity Smoker Surgical History History of facial surgery Hx of colonoscopy Hx of esophagogastroduodenoscopy S/P hernia repair Family History Family History Father No problems noted. Mother No problems noted. Social History Social History Alcohol intake: never Cigarette Packs Per Day: 0.25 Cigarettes Per Day: 5.0 Years Smoked: 8 Substance Use Type: Marijuana Physical Exam Vital Signs: Vital Signs: Last Vital Signs Temp 98.0 F 10/28/22 16:09 Pulse 60 10/28/22 16:09 Resp 16 10/28/22 16:09 BP 121/72 10/28/22 16:09 Pulse Ox 98 10/28/22 16:09 O2 Del Method 10/28/22 16:09 BMI result Body Mass Index 22.1 Const: General: cooperative, healthy appearing and no acute distress Orientation/consciousness: patient oriented x3 Limitations: no limitations HEENT: Head: Yes normal to inspection and Yes atraumatic Ears: hearing grossly normal bilaterally General nose exam: Normal external nose present Face and sinus: Yes normal facial exam Eyes: General: appearance normal, both eyes and all related structures EOM: EOMs intact bilaterally Neck: Neck: Yes normal visual inspection and Yes no meningeal signs Resp: Effort & Inspection: normal respiratory effort and no respiratory distress Cardio: Rate: regular rate GI: Inspection: Yes normal to inspection Palpation (GI): Soft to palpation, nontender, no guarding and not rigid : General: Yes no CVA tenderness Back/Spine/Pelvis: Other: No midline thoracic/lumbar spinous tenderness/step-off or deformity. + right- sided lumbar paraspinal/MSK tenderness Back: no CVA tenderness Skin: Rashes: no rashes Wounds: no wounds Neuro: Other: Strength intact throughout. No saddle anesthesia. Sensation intact to light touch. Neurovascular intact distally General: patient oriented x3, gait normal, tone normal, moves all extremities and no meningeal signs Cognition (Neuro): normal cognition Speech: No Abnormal speech present Gait exam (Neuro): Normal gait present Motor exam (neuro): 5/5 motor strength present throughout Extrem: General: Yes normal to inspection Course Course Course Narrative: Results discussed with patient including worrisome signs and symptoms and strict return precautions, and when to return to the emergency department. They verbalized understanding and feel safe for discharge at this time. Medical Decision Making Medical Decision Making [facility] Narrative: 42-year-old male with no significant past medical history presenting to the ED complaining of low back pain greater on the right s/p shoveling heavy snow yesterday. On exam vital signs stable, NAD, nontoxic appearing, no midline spinous tenderness or red flag symptoms. Ambulating with steady gait. Tenderness reproducible as above. Concern for MSK strain/spasming. Low suspicion for cord compression, fracture, cauda equina, epidural abscess, renal stone or pyelo Plan: Pain control Results discussed with patient including worrisome signs and symptoms and strict return precautions, and when to return to the emergency department. They v erbalized understanding and feel safe for discharge at this time. Differential Diagnosis Differential Diagnoses: The differential diagnosis associated with the presentation includes As above Admission/Observation Consideration of admission/observation: Escalation of care including admission/observation considered Lab Data MDM Lab Attestation statement: I reviewed the patient's lab results. Radiology Impression Discussion of test interpretation with radiology: I have reviewed the radiologist's reading. External Record Review External record reviewed: Inpatient record, Office record, Outpatient record, Prior outpatient labs, Prior outpatient radiology, Primary care record and Outside ED record Discharge Plan Discharge Clinical Impression: Strain of lumbar region Patient Disposition: Home, Self-Care Instructions: Acute Low Back Pain (ED) Additional Instructions: Your pain is likely musculoskeletal Flexeril is a muscle relaxer, take at night as it makes you drowsy, do not drive, drink alcohol, or operate machinery while taking it Naproxen as an anti-inflammatory / pain medication, take with food Lidoderm patches are numbing patches, apply to painful area In addition take Tylenol at home If symptoms persist or worsen, pain becomes unbearable, you developed urinary retention or incontinence, or weakness return to the ED Prescriptions: New acetaminophen [Tylenol Extra Strength] 500 mg tablet 500 mg PO Q6H PRN (Reason: fever or pain) Qty: 14 0RF lidocaine [Lidoderm] 5 % adhesive patch,medicated 1 patch topical DAILY MDD remove after 12 hours PRN (Reason: pain) Qty: 30 0RF Rx Instructions: leave on most painful area for up to 12 hrs naproxen 500 mg tablet 500 mg PO BID PRN (Reason: pain) 10 Days Qty: 20 0RF cyclobenzaprine 5 mg tablet 5 mg PO Q8H PRN (Reason: pain (scale score 7-10)) 5 Days Qty: 14 0RF No Action naproxen 500 mg tablet 500 mg PO BID PRN (Reason: pain) Qty: 30 0RF acetaminophen [Tylenol] 325 mg tablet 325 mg PO QID PRN (Reason: pain) Qty: 90 0RF levofloxacin 500 mg tablet 500 mg PO DAILY Qty: 14 0RF metronidazole 500 mg tablet 500 mg PO TID 14 Days Qty: 42 0RF Referrals: Physician,Unknown J [Primary Care Provider] - 1 week
== END 2022-10-28 16:22 | disposition home or self-care (01) ==
LOC: HO.ED 16:20
PROVIDERS: Emergency Provider Emergency Medicine
DX: S39.012A Strain of muscle, fascia and tendon of lower back, initial encounter (principal); Y93.H1 Activity, digging, shoveling and raking; Y93.9 Activity, unspecified; Y92.9 Unspecified place or not applicable; Y99.9 Unspecified external cause status; Z79.899 Other long term (current) drug therapy
CPT/HCPCS: 99281

== ENCOUNTER 2023-03-22 13:07 | Emergency (ER) | payer OTHER, SELFPAY ==
--- NOTE | ~2023-03-22 | XR_ITS ---
EXAMINATION: XR CHEST CLINICAL INFORMATION: Right lung pain. COMPARISON: 03/30/2013 chest and rib radiographs. TECHNIQUE: 2 views of the chest were obtained. FINDINGS: No significant abnormality is noted involving the heart, lungs, mediastinum, bony thorax or soft tissues. XR/XR chest 2V IMPRESSION: No acute cardiopulmonary process.
[2023-03-22 13:55] VITALS: BP 131/81; PULSE 60; RESP 18; TEMP 36.3; O2SAT 95; BMI 21.4
--- NOTE | 2023-03-22 13:55 | ED_ITS ---
HPI - General Adult General Chief complaint: Upper Respiratory Symptoms Stated complaint: Pain when breathing R side Time Seen by Provider: 03/22/23 14:23 Source: patient, RN notes reviewed and old records reviewed Mode of arrival: ambulatory History of Present Illness HPI narrative: 42-year-old male with no significant past medical history presenting to the ED complaining of right mid back/scapular pain radiating to right ribs x 4 days. Admits to working out at the gym/recent back exercises proceeding pain. Denies direct injury/trauma or fall. Admits pain worse with taking deep breath/moving and coughing. Denies SOB/CP, abdominal pain, nausea/vomiting, hematuria/dysuria, recent travel, history of clots. Is a cigarette smoker. Onset (ago): day(s) Related Data Previous Rx's Medication Instructions Recorded levofloxacin 500 mg tablet 500 mg PO DAILY #14 tabs 09/11/21 metronidazole 500 mg tablet 500 mg PO TID 14 days #42 tabs 09/11/21 naproxen 500 mg tablet 500 mg PO BID PRN pain #30 tabs 02/10/22 acetaminophen 325 mg tablet 325 mg PO QID PRN pain #90 tabs 10/21/22 (Tylenol) acetaminophen 500 mg tablet 500 mg PO Q6H PRN fever or pain 10/28/22 (Tylenol Extra Strength) #14 tabs cyclobenzaprine 5 mg tablet 5 mg PO Q8H PRN pain (scale score 10/28/22 7-10) 5 days #14 tabs lidocaine 5 % topical patch 1 patch topical DAILY PRN pain #30 10/28/22 (Lidoderm) ea naproxen 500 mg tablet 500 mg PO BID PRN pain 10 days #20 10/28/22 tabs acetaminophen 500 mg tablet 500 mg PO Q6H PRN fever or pain 03/22/23 (Tylenol Extra Strength) #14 tabs cyclobenzaprine 5 mg tablet 5 mg PO Q8H PRN pain (scale score 03/22/23 7-10) 5 days #14 tabs lidocaine 5 % topical patch 1 patch topical DAILY PRN pain #30 03/22/23 (Lidoderm) ea naproxen 500 mg tablet 500 mg PO BID PRN pain 10 days #20 03/22/23 tabs Allergies Allergy/AdvReac Type Severity Reaction Status Date / Time No Known Allergies Allergy Verified 03/22/23 14:00 Review of Systems Review of Systems: Constitutional: No Fever, No Chills, No Fatigue, No Malaise ENT/Mouth: No Hearing loss, No Ear Pain, No sore throat, No Rhinorrhea, No Swallowing Difficulty Eyes: No Eye Pain, No Swelling, No Redness, No Vision Changes Cardiovascular: No Chest Pain, No SOB, No Edema, No Palpitations Respiratory: No Cough, No Sputum, No Dyspnea Gastrointestinal: No Nausea, No Vomiting, No Abdominal pain Genitourinary: No Dysuria, No Urinary Frequency, No Hematuria, No Urinary Incontinence/retention, No Flank Pain Musculoskeletal: + joint pain, No Myalgias, No Joint Swelling Skin: No Skin Lesions, No rash Neuro: No Weakness, No Loss of Consciousness, No Dizziness, No Headache Yes all other systems are reviewed and are negative Constitutional: Constitutional: Reports as per [facility] Past Medical History Attestation statement: The following information was validated with the patient. Source: old records reviewed Medical History Abnormal CT scan, gastrointestinal tract Colitis Diverticular disease Diverticulitis large intestine w/o perforation or abscess w/bleeding History of diverticulitis Recent surgical procedure on lower extremity Smoker Viral syndrome Surgical History History of facial surgery Hx of colonoscopy Hx of esophagogastroduodenoscopy S/P hernia repair Family History Family History Father No problems noted. Mother No problems noted. Social History Social History Alcohol intake: never Cigarette Packs Per Day: 0.25 Cigarettes Per Day: 5.0 Years Smoked: 8 Substance Use Type: Marijuana Advance Directives: No Advance Directives Information Provided: No Physical Exam ED Vital Signs: Vital Signs - 24 hr 03/22/23 13:55 Temperature 97.3 F Pulse Rate 60 Respiratory Rate 18 Blood Pressure 131/81 Pulse Oximetry 95 Oxygen Delivery Method Room Air BMI result Body Mass Index 21.4 Const General: cooperative, healthy appearing and no acute distress Orientation/consciousness: patient oriented x3 Limitations: no limitations HENMT Head: Yes normal to inspection and Yes atraumatic Ears: hearing grossly normal bilaterally General nose exam: Normal external nose present Face and sinus: Yes normal facial exam Eyes General: appearance normal, both eyes and all related structures EOM: EOMs intact bilaterally Neck Neck: Yes normal visual inspection and Yes no meningeal signs Chest Other: No flail chest, erythema or ecchymosis, No rash Chest palpation & inspection: normal inspection of the chest, no crepitus and no tenderness Resp Effort & Inspection: normal respiratory effort, not labored, no respiratory distress, no stridor and not tachypneic Auscultation: clear to auscultation bilaterally and no wheezes Cardio Rate: regular rate Heart sounds: S1 normal heart sound present and S2 normal heart sound present Peripheral pulses: Peripheral pulses 2+ throughout GI Inspection: Yes normal to inspection Palpation (GI): Soft to palpation, nontender, no guarding and not rigid General: Yes no CVA tenderness Back/Spine/Pelvis Other: No midline cervical/thoracic/lumbar spinous tenderness/step-off or deformity Back: no CVA tenderness Skin Rashes: no rashes Wounds: no wounds Neuro Other: Strength intact throughout. Sensation intact to light touch. Neurovascular intact distally General: patient oriented x3, tone normal and no meningeal signs Gait exam (Neuro): Normal gait present Motor exam (neuro): 5/5 motor strength present throughout Extrem General: Yes normal to inspection and Yes no pedal edema Course Course Course Narrative: RME performed by Margie Luna PA-C. Patient is a 42 year old assigned male at presenting to the emergency department with right flank pain. Labs ordered. Patient placed back in the waiting room pending room availability and results. -labs unremarkable. D-dimer WNL, PE unlikely. -UA with trace ketones, not infected, no blood or rbc's XR chest 2V IMPRESSION: No acute cardiopulmonary process. Results discussed with patient including worrisome signs and symptoms and strict return precautions, and when to return to the emergency department. They verbalized understanding and feel safe for discharge at this time. Medical Decision Making Medical Decision Making [facility] Narrative: 42-year-old male with no significant past medical history presenting to the ED complaining of right mid back/scapular pain radiating to right ribs x 4 days. On exam VSS, NAD, nontoxic appearing, PE as above, no reproducible pain, no rash/ecchymosis/erythema, no CVAT, abdomen soft non-tender. Concern for MSK pain/strain vs renal stone/pyelo vs ?PE vs PNA. Lower suspicion for pancreatitis or splenic injury/cholecystitis/lithiasis Plan: Labs ordered in triage, UA, CXR, D-dimer Please refer to course for remaining clinical decision making, interpretation of labs/imaging results, and discussions with consultants and/or family members. Differential Diagnosis Differential Diagnoses: The differential diagnosis associated with the presentation includes As above Admission/Observation Consideration of admission/observation: Escalation of care including admission/observation considered Lab Data MDM Lab Attestation statement: I reviewed the patient's lab results. 03/22/23 14:10 03/22/23 14:10 Labs: Lab Results 03/22/23 03/22/23 03/22/23 Range/Units 14:10 14:10 14:42 WBC 6.4 (4.8-10.8) X10*3/uL RBC 5.37 (4.60-5.80) X10*6/uL Hgb 15.1 (14.0-18.0) g/dl Hct 48.0 (42.0-52.0) % MCV 89.4 (80.0-98.0) fL MCH 28.1 (27.0-33.0) pg MCHC 31.5 (31.0-36.0) g/dl RDW 13.2 (11.0-16.0) % Plt Count 250 (160-400) X10*3/uL MPV 9.7 (9.4-12.4) fL Immature Gran % (Auto) 0.2 (0.0-0.4) % Neut % (Auto) 46.4 (45-73) % Lymph % (Auto) 38.9 (20-40) % [place] % (Auto) 11.6 H (2-11) % Eos % (Auto) 2.4 (0-4) % Baso % (Auto) 0.5 (0-2) % Lymph # (Auto) 2.5 (1.2-4.9) X10*3/uL [place] # (Auto) 0.7 (0.1-1.2) X10*3/uL Eos # (Auto) 0.2 (0.0-0.4) X10*3/uL Baso # (Auto) 0.0 (0.0-0.2) X10*3/uL Abs Immat Gran (auto) 0.01 (0.00-0.03) X10*3/uL Absolute Neuts (auto) 3.0 (2.0-8.3) x10*3/uL Absolute Nucleated RBC 0.000 (0.0-0.012) X10*3/uL Nucleated RBC % (auto) 0.0 (0.0-0.2) /100WBC D-Dimer High Sensitivty 159 NG/ML Sodium 139 (135-145) mmol/L Potassium 4.2 (3.3-5.1) mmol/L Chloride 104 (96-108) mmol/L Carbon Dioxide 27 (22-29) mmol/L Anion Gap 12 (12-20) BUN 13 (9-16) mg/dL Creatinine 0.94 (0.5-1.4) mg/dL Estim Creat Clear Calc 100.0 Estimated GFR > 60 Random Glucose 75 (60-115) mg/dL Calcium 9.8 (8.4-10.2) mg/dL Magnesium 2.5 (1.6-2.6) mg/dL Total Bilirubin 0.8 (0.0-1.0) mg/dL AST 22 (5-37) U/L ALT 16 (0-40) U/L Alkaline Phosphatase 148 H (39-117) U/L Total Protein 7.6 (6.5-8.0) g/dL Albumin 4.2 (3.5-5.0) g/dL Urine Color Urine Appearance Urine pH (5.0-9.0) Ur Specific [place] (1.005-1.025) Urine Protein (Neg-Trace) mg/dL Urine Glucose (UA) (Negative) mg/dL Urine Ketones (Negative) mg/dL Urine Blood (Negative) Urine Nitrite (Negative) Ur Leukocyte Esterase (Negative) 03/22/23 Range/Units 14:42 WBC (4.8-10.8) X10*3/uL RBC (4.60-5.80) X10*6/uL Hgb (14.0-18.0) g/dl Hct (42.0-52.0) % MCV (80.0-98.0) fL MCH (27.0-33.0) pg MCHC (31.0-36.0) g/dl RDW (11.0-16.0) % Plt Count (160-400) X10*3/uL MPV (9.4-12.4) fL Immature Gran % (Auto) (0.0-0.4) % Neut % (Auto) (45-73) % Lymph % (Auto) (20-40) % [place] % (Auto) (2-11) % Eos % (Auto) (0-4) % Baso % (Auto) (0-2) % Lymph # (Auto) (1.2-4.9) X10*3/uL [place] # (Auto) (0.1-1.2) X10*3/uL Eos # (Auto) (0.0-0.4) X10*3/uL Baso # (Auto) (0.0-0.2) X10*3/uL Abs Immat Gran (auto) (0.00-0.03) X10*3/uL Absolute Neuts (auto) (2.0-8.3) x10*3/uL Absolute Nucleated RBC (0.0-0.012) X10*3/uL Nucleated RBC % (auto) (0.0-0.2) /100WBC D-Dimer High Sensitivty NG/ML Sodium (135-145) mmol/L Potassium (3.3-5.1) mmol/L Chloride (96-108) mmol/L Carbon Dioxide (22-29) mmol/L Anion Gap (12-20) BUN (9-16) mg/dL Creatinine (0.5-1.4) mg/dL Estim Creat Clear Calc Estimated GFR Random Glucose (60-115) mg/dL Calcium (8.4-10.2) mg/dL Magnesium (1.6-2.6) mg/dL Total Bilirubin (0.0-1.0) mg/dL AST (5-37) U/L ALT (0-40) U/L Alkaline Phosphatase (39-117) U/L Total Protein (6.5-8.0) g/dL Albumin (3.5-5.0) g/dL Urine Color Yellow Urine Appearance Clear Urine pH 5.5 (5.0-9.0) Ur Specific [place] 1.025 (1.005-1.025) Urine Protein Negative (Neg-Trace) mg/dL Urine Glucose (UA) Negative (Negative) mg/dL Urine Ketones Trace (Negative) mg/dL Urine Blood Negative (Negative) Urine Nitrite Negative (Negative) Ur Leukocyte Esterase Negative (Negative) Radiology Impression Discussion of test interpretation with radiology: I have reviewed the radiologist's reading. External Record Review External record reviewed: Inpatient record, Office record, Outpatient record, Prior outpatient labs, Prior outpatient radiology, Primary care record and Outside ED record Tests considered The following testing was considered but not selected: As above Prescription Management I considered prescription management with: Pain Medication Discharge Plan Discharge Clinical Impression: Musculoskeletal pain Patient Disposition: Home, Self-Care Instructions: Musculoskeletal Pain (ED) Additional Instructions: Your blood work, urine, and chest x-ray were reassuring, your pain is likely musculoskeletal Your pain is likely musculoskeletal Flexeril is a muscle relaxer, take at night as it makes you drowsy, do not drive, drink alcohol, or operate machinery while taking it Naproxen as an anti-inflammatory / pain medication, take with food Lidoderm patches are numbing patches, apply to painful area In addition take Tylenol at home If symptoms persist or worsen, pain becomes unbearable, you developed urinary retention or incontinence, or weakness return to the ED Prescriptions: New acetaminophen [Tylenol Extra Strength] 500 mg tablet 500 mg PO Q6H PRN (Reason: fever or pain) Qty: 14 0RF lidocaine [Lidoderm] 5 % adhesive patch,medicated 1 patch topical DAILY MDD remove after 12 hours PRN (Reason: pain) Qty: 30 0RF Rx Instructions: leave on most painful area for up to 12 hrs naproxen 500 mg tablet 500 mg PO BID PRN (Reason: pain) 10 Days Qty: 20 0RF cyclobenzaprine 5 mg tablet 5 mg PO Q8H PRN (Reason: pain (scale score 7-10)) 5 Days Qty: 14 0RF No Action naproxen 500 mg tablet 500 mg PO BID PRN (Reason: pain) Qty: 30 0RF acetaminophen [Tylenol] 325 mg tablet 325 mg PO QID PRN (Reason: pain) Qty: 90 0RF acetaminophen [Tylenol Extra Strength] 500 mg tablet 500 mg PO Q6H PRN (Reason: fever or pain) Qty: 14 0RF lidocaine [Lidoderm] 5 % adhesive patch,medicated 1 patch topical DAILY MDD remove after 12 hours PRN (Reason: pain) Qty: 30 0RF Rx Instructions: leave on most painful area for up to 12 hrs naproxen 500 mg tablet 500 mg PO BID PRN (Reason: pain) 10 Days Qty: 20 0RF cyclobenzaprine 5 mg tablet 5 mg PO Q8H PRN (Reason: pain (scale score 7-10)) 5 Days Qty: 14 0RF levofloxacin 500 mg tablet 500 mg PO DAILY Qty: 14 0RF metronidazole 500 mg tablet 500 mg PO TID 14 Days Qty: 42 0RF Referrals: Physician,None [Primary Care Provider] -
[2023-03-22 14:24] LABS: MANUAL DIFF FLAG NO
[2023-03-22 14:27] LABS: Basophils Percent Auto 0.5 % (0-2); Eosinophils Absolute Auto 0.2 X10*3/uL (0.0-0.4); Eosinophils Percent Auto 2.4 % (0-4); Hemoglobin 15.1 g/dl (14.0-18.0); Imm Gran Abs Auto 0.01 X10*3/uL (0.00-0.03); Imm Gran Pct Auto 0.2 % (0.0-0.4); Lymphocytes Absolute Auto 2.5 X10*3/uL (1.2-4.9); Lymphocytes Percent Auto 38.9 % (20-40); Mean Corpuscular HGB Conc 31.5 g/dl (31.0-36.0); Mean Corpuscular Hemoglobin 28.1 pg (27.0-33.0); Mean Corpuscular Volume 89.4 fL (80.0-98.0); Mean Platelet Volume 9.7 fL (9.4-12.4); Monocytes Absolute Auto 0.7 X10*3/uL (0.1-1.2); Monocytes Percent Auto 11.6 % (2-11); Neutrophils Percent Auto 46.4 % (45-73); Platelet Count 250 X10*3/uL (160-400); Red Blood Count 5.37 X10*6/uL (4.60-5.80); Red Cell Distribution Width 13.2 % (11.0-16.0); White Blood Count 6.4 X10*3/uL (4.8-10.8)
--- NOTE | 2023-03-22 14:49 | PC.NURSE ---
dimer and UA sent
[2023-03-22 14:51] LABS: Appearance Urine Clear; Color Urine Yellow; Glucose Urine UA Negative (Negative); Leukocyte Esterase Urine Negative (Negative); Nitrite Urine Negative (Negative); PH 5.5 (5.0-9.0); Specific Gravity - Urine 1.025 (1.005-1.025); Urine Blood Negative (Negative); Urine Ketones Trace mg/dL (Negative); Urine Protein Negative (Neg-Trace)
[2023-03-22 14:52] LABS: Alanine Aminotransferase 16 U/L (0-40); Albumin Level 4.2 g/dL (3.5-5.0); Alkaline Phosphatase 148 U/L (39-117); Anion Gap 12 (12-20); Aspartate Amino Transferase 22 U/L (5-37); Bilirubin Total 0.8 mg/dL (0.0-1.0); Blood Urea Nitrogen 13 mg/dL (9-16); Calcium 9.8 mg/dL (8.4-10.2); Carbon Dioxide 27 mmol/L (22-29); Chloride 104 mmol/L (96-108); Estimated Glomerular Filt Rate > 60; Glucose Random 75 mg/dL (60-115); Magnesium 2.5 mg/dL (1.6-2.6); Potassium 4.2 mmol/L (3.3-5.1); Sodium 139 mmol/L (135-145); Total Protein 7.6 g/dL (6.5-8.0)
[2023-03-22 15:12] LABS: D Dimer High Sensitivity 159 NG/ML
== END 2023-03-22 15:29 | disposition home or self-care (01) ==
PROVIDERS: Physician Assistant; Physician Assistant Medical; Emergency Provider Emergency Medicine
DX: M79.18 Myalgia, other site (principal); F17.210 Nicotine dependence, cigarettes, uncomplicated; F12.90 Cannabis use, unspecified, uncomplicated; Z79.899 Other long term (current) drug therapy
CPT/HCPCS: 36415; 71046; 80053; 81003; 83735; 85025; 85379; 99282; 99283

== ENCOUNTER 2024-03-04 17:47 | Inpatient (IN) | payer SELFPAY ==
--- NOTE | ~2024-03-04 | CT_ITS ---
EXAMINATION: CT ABDOMEN AND PELVIS WITH CONTRAST CLINICAL INFORMATION: Left lower quadrant pain. History of diverticulitis COMPARISON: CT abdomen pelvis 05/10/2020 and 12/21/2020. TECHNIQUE: Multidetector volumetric images were obtained from the superior aspect of the liver through the pubic symphysis following administration 85 mL of Omnipaque 350 intravenous contrast. Sagittal and coronal reformatted images were obtained on the technologist's workstation. Oral contrast: Yes This CT examination was performed using dose optimization techniques as appropriate, variously including the following: *Automated exposure control *Adjustment of mA and/or kV according to patient size (this includes techniques or standardized protocols for targeted exams where dose is matched to indication/reason for exam; i.e. extremities or head) *Use of iterative reconstruction technique DLP: 438 mGy-cm FINDINGS: LUNG BASES: Mild dependent atelectasis at the posterior lung bases. LIVER, GALLBLADDER, AND BILIARY TREE: The liver is normal in size, shape, and attenuation. No focal hepatic lesion or biliary ductal dilatation is present. The gallbladder is unremarkable with no evidence of radiopaque gallstones, gallbladder wall thickening, or obvious pericholecystic inflammatory changes. PANCREAS: Unremarkable. SPLEEN: Unremarkable. ADRENAL GLANDS: Unremarkable. KIDNEYS AND URETERS: The right kidney has a tiny nonobstructing calyceal calculus in the interpolar region measuring 1 mm in size. The left kidney has a tiny calculus at the edge of the calyx in the upper pole measuring 1 mm in size. Both kidneys are normal in shape and size. No hydronephrosis. No focal abnormality. BLADDER: Unremarkable. GASTROINTESTINAL TRACT: Persistent or recurrent thickening of the mid to distal sigmoid colon, slightly less severe than the previous exam. A few scattered diverticula are seen. A tiny fluid collection at the left lateral wall of the mid sigmoid colon measures 1.6 x 0.4 cm in size and may reflect a small colonic wall/pericolonic abscess, less prominent than the previous examination. No evidence of bowel obstruction. No abnormal thickening of the small bowel or the remainder of the colon. The appendix is normal in size. ABDOMINAL WALL: No significant hernia is appreciated. LYMPH NODES: Normal. VASCULAR: Unremarkable. No evidence of abdominal aortic aneurysm. No evidence of portal or superior mesenteric vein thrombosis. PELVIC VISCERA: The prostate and seminal vesicles are unremarkable. No evidence of free fluid or abscess collection in the pelvis. OSSEOUS STRUCTURES: Unremarkable. CT/CT abdomen pelvis w IV con IMPRESSION: 1. Chronic long segment thickening of the sigmoid colon as noted previously and slightly less severe than the prior exam of 12/21/2020. A tiny fluid collection is suspected at the lateral left margin of the mid sigmoid colon which could reflect a tiny pericolonic abscess. No drainable collections are seen. 2. Tiny bilateral nonobstructive renal calculi. No hydronephrosis.
[2024-03-04 17:51] VITALS: BP 133/77; PULSE 71; RESP 18; TEMP 36.4; O2SAT 97; BMI 24.0
[2024-03-04 18:03] LABS: MANUAL DIFF FLAG NO
--- NOTE | 2024-03-04 18:04 | ED_ITS ---
HPI - Abdominal Pain General Chief Complaint: Abdominal Pain Stated Complaint: diverticulitis? Time Seen by Provider: 03/04/24 18:04 Source: patient, RN notes reviewed and old records reviewed Mode of arrival: ambulatory Limitations: no limitations History of Present Illness ED Provider: NGHIA WILLIS PA-C HPI narrative: 43 year old male with pmhx significant for diverticulosis/ diverticulitis presents to the ED for evaluation of 05/25 left lower quadrant abdominal pain x4 days. Admits to associated nausea without vomiting and one episode of diarrhea. Admits stool this morning had blood streaks in it which has occurred with acute diverticulitis flares in the past. Last flare approximately 2 years ago. Denies recent antibiotic use. Denies fever/chills. Denies recent travel outside [place]. Endorses history of hernia repair, no other abdominal surgeries. Last colonoscopy in 2019. Related Data Previous Rx's ?Medication ?Instructions ?Recorded levofloxacin 500 mg tablet 500 mg PO DAILY #14 tabs 09/11/21 metronidazole 500 mg tablet 500 mg PO TID 14 days #42 tabs 09/11/21 naproxen 500 mg tablet 500 mg PO BID PRN pain #30 tabs 02/10/22 acetaminophen 325 mg tablet 325 mg PO QID PRN pain #90 tabs 10/21/22 (Tylenol) acetaminophen 500 mg tablet 500 mg PO Q6H PRN fever or pain 10/28/22 (Tylenol Extra Strength) #14 tabs cyclobenzaprine 5 mg tablet 5 mg PO Q8H PRN pain (scale score 10/28/22 7-10) 5 days #14 tabs lidocaine 5 % topical patch 1 patch topical DAILY PRN pain #30 10/28/22 (Lidoderm) ea naproxen 500 mg tablet 500 mg PO BID PRN pain 10 days #20 10/28/22 tabs acetaminophen 500 mg tablet 500 mg PO Q6H PRN fever or pain 03/22/23 (Tylenol Extra Strength) #14 tabs cyclobenzaprine 5 mg tablet 5 mg PO Q8H PRN pain (scale score 03/22/23 7-10) 5 days #14 tabs lidocaine 5 % topical patch 1 patch topical DAILY PRN pain #30 03/22/23 (Lidoderm) ea naproxen 500 mg tablet 500 mg PO BID PRN pain 10 days #20 03/22/23 tabs Allergies Allergy/AdvReac Type Severity Reaction Status Date / Time No Known Allergies Allergy Verified 03/04/24 17:52 Review of Systems Review of Systems Constitutional: No fever, chills, fatigue, night sweats, weight changes ENT/Mouth: No ear pain, hearing loss, nasal congestion, sinus pain, rhinorrhea, sore throat Eyes: No eye pain, swelling, redness, vision changes, discharge Cardio: No chest pain, palpitations, MILLS, orthopnea, peripheral edema Pulm: No SOB, cough, sputum, wheezing, dyspnea, hemoptysis GI: No vomiting, hematemesis, abdominal pain, constipation, hematochezia, melena, +abdominal pain, +nausea, +diarrhea : No irregular bleeding, dysuria, frequency, urgency, hesitancy, hematuria, flank pain, urinary flow changes, urinary incontinence or retention MSK: No back pain, neck pain, joint pain, myalgias Skin: No lesions, rashes Neuro: No weakness, numbness, paresthesias, LOC, dizziness, headache Psych: No anxiety/panic, depression, SI/HI, AH/VH All other systems reviewed and are negative. [facility] Past Medical History Attestation statement: The following information was validated with the patient. Source: old records reviewed and nursing notes reviewed Medical History Diverticular disease Viral syndrome Diverticulitis large intestine w/o perforation or abscess w/bleeding Smoker Abnormal CT scan, gastrointestinal tract Colitis Recent surgical procedure on lower extremity History of diverticulitis Surgical History Hx of colonoscopy Hx of esophagogastroduodenoscopy S/P hernia repair History of facial surgery Family History Family History Father No problems noted. Mother No problems noted. Social History Social History Alcohol intake: never Cigarette Packs Per Day: 0.25 Cigarettes Per Day: 5.0 Years Smoked: 8 Smoked in Last 30 Days: No Use of substances other than those prescribed or required for medical reasons: No Substance Use Type: Marijuana Advance Directives: No Advance Directives Information Provided: No Do you have a plan to hurt others: No Plan Physical Exam ED Vital Signs: Vital Signs - 24 hr 03/04/24 17:51 03/04/24 18:43 03/04/24 19:44 Temperature 97.5 F 97.9 F Pulse Rate 71 60 Respiratory Rate 18 19 16 Blood Pressure 133/77 119/79 Pulse Oximetry 97 99 Oxygen Delivery Method Room Air Room Air 03/04/24 20:43 Temperature Pulse Rate Respiratory Rate 14 Blood Pressure Pulse Oximetry Oxygen Delivery Method BMI result Body Mass Index 24.0 Vital signs stable, afebrile Const Other: Patient in obvious discomfort, pacing around the room due to pain General: cooperative and no acute distress Orientation/consciousness: patient oriented x3 Limitations: no limitations HENMT Head: Yes normal to inspection, Yes No palpable skull fracture present, Yes normocephalic and Yes atraumatic Eyes General: appearance normal, both eyes and all related structures Pupils: Equal, round and reactive pupils present Neck Neck: Yes normal visual inspection, Yes full ROM and Yes no lymphadenopathy Resp Effort & Inspection: normal respiratory effort and able to speak in complete sentences Auscultation: clear to auscultation bilaterally Cardio Rate: regular rate Rhythm: regular rhythm GI Other: Abdomen soft, distended, tender to palpation of the left lower quadrant without rebound tenderness or guarding. normoactive bs General: Yes no CVA tenderness Back/Spine/Pelvis Back: no CVA tenderness Skin General skin exam: no rashes or lesions noted Neuro General: patient oriented x3 Cranial nerves: Yes Equal, round and reactive pupils present Extrem General: Yes normal to inspection Course Course Course Narrative: 1823-- CBC with leukocytosis to 11.9. No anemia. H&H stable. Chemistry showing hyperkalemic to 5.3 > will give 10 lokelma. No other acute electrolyte abnormality requiring intervention. Normal renal function. Normal liver function. Lipase WNL. Unlikely pancreatitis. > ct abd pending > patient receiving Zofran, morphine and IV fluids 2054-- CT abdomen/pelvis showing chronic long segment thickening of the sigmoid colon as noted previously and slightly less severe than the prior exam on 12/21/2020. There is a tiny fluid collection suspected at the lateral left margin of the mid sigmoid colon which may reflect a tiny pericolonic abscess without drainable collections seen. Also incidental findings of tiny bilateral nonobstructing renal calculi without hydronephrosis. > on re-evaluation, patient reports improvement in pain with IV morphine. > I did discuss findings with on-call GI doctor, Dr. Strong, who states that there is no emergent intervention needed at this time no recommends admission to medicine for IV antibiotic treatment. > I discussed possible admission with patient and he is agreeable to this. > case discussed with hospitalist, Dr. Montalvo, who has accepted admission for IV antibiotic treatment. Dr. Montalvo to place admission orders. Medical Decision Making Medical Decision Making [facility] Narrative: 43 year old male with pmhx significant for diverticulosis/ diverticulitis presents to the ED for evaluation of left lower quadrant abdominal pain x4 days. Vital signs stable, afebrile. He is nontoxic-appearing and in no acute distress however appears uncomfortable, pacing around the room. On exam, abdomen is soft, distended, tender to palpation of left lower quadrant without rebound tenderness or guarding. Positive bowel sounds x4. no cvat. skin w/d/i. Differential diagnosis includes anemia, electrolyte abnormality, gastroenteritis, pancreatitis, appendicitis, diverticulosis, diverticulitis. Low suspicion for bowel perforation, abscess, SBO, ischemic bowel. Plan for labs, CT, pain control, IVF, re-evaluation Differential Diagnosis Differential Diagnoses: The differential diagnosis associated with the presentation includes As above Admission/Observation Consideration of admission/observation: Escalation of care including admission/observation considered Patient to be admitted for possible pericolonic abscess requiring IV antibiotic therapy. Consult Healthcare Provider Management of the patient was discussed with: Hospitalist (Dr. Montalvo) and Air Analysis Engineering Technician (Dr. Strong (GI)) Lab Data [facility] Lab Attestation statement: I reviewed the patient's lab results. As above 03/04/24 17:59 03/04/24 17:59 Labs: Lab Results 03/04/24 03/04/24 Range/Units 17:59 18:31 WBC 11.9 H (4.8-10.8) X10*3/uL RBC 5.43 (4.60-5.80) X10*6/uL Hgb 15.3 (14.0-18.0) g/dl Hct 47.6 (42.0-52.0) % MCV 87.7 (80.0-98.0) fL MCH 28.2 (27.0-33.0) pg MCHC 32.1 (31.0-36.0) g/dl RDW 13.7 (11.0-16.0) % Plt Count 221 (160-400) X10*3/uL MPV 9.3 L (9.4-12.4) fL Immature Gran % (Auto) 0.4 (0.0-0.4) % Neut % (Auto) 77.3 H (45-73) % Lymph % (Auto) 11.2 L (20-40) % [place] % (Auto) 10.6 (2-11) % Eos % (Auto) 0.3 (0-4) % Baso % (Auto) 0.2 (0-2) % Lymph # (Auto) 1.3 (1.2-4.9) X10*3/uL [place] # (Auto) 1.3 H (0.1-1.2) X10*3/uL Eos # (Auto) 0.0 (0.0-0.4) X10*3/uL Baso # (Auto) 0.0 (0.0-0.2) X10*3/uL Abs Immat Gran (auto) 0.05 H (0.00-0.03) X10*3/uL Absolute Neuts (auto) 9.2 H (2.0-8.3) x10*3/uL Absolute Nucleated RBC 0.000 (0.0-0.012) X10*3/uL Nucleated RBC % (auto) 0.0 (0.0-0.2) /100WBC Sodium 139 (135-145) mmol/L Potassium 5.3 H (3.3-5.1) mmol/L Chloride 104 (96-108) mmol/L Carbon Dioxide 22 (22-29) mmol/L Anion Gap 18 (12-20) BUN 10 (9-16) mg/dL Creatinine 0.97 (0.5-1.4) mg/dL Estim Creat Clear Calc 103.4 Estimated GFR > 60 Random Glucose 96 (60-115) mg/dL Lactic Acid 0.8 (0.5-2.0) mmol/L Calcium 9.7 (8.4-10.2) mg/dL Total Bilirubin 0.5 (0.0-1.0) mg/dL AST 29 (5-37) U/L ALT 23 (0-40) U/L Alkaline Phosphatase 110 (39-117) U/L Total Protein 7.9 (6.5-8.0) g/dL Albumin 4.2 (3.5-5.0) g/dL Lipase 21 (8-78) U/L Independent Interpretation I performed an independent interpretation of an: CT Scan Interpretation: CT abdomen/pelvis with colonic thickening, agree with radiologist's interpretation. Radiology Impression Discussion of test interpretation with radiology: I have reviewed the radiologist's reading. Radiologist Impression: EXAMINATION: CT ABDOMEN AND PELVIS WITH CONTRAST CLINICAL INFORMATION: Left lower quadrant pain. History of diverticulitis COMPARISON: CT abdomen pelvis 05/10/2020 and 12/21/2020. TECHNIQUE: Multidetector volumetric images were obtained from the superior aspect of the liver through the pubic symphysis following administration 85 mL of Omnipaque 350 intravenous contrast. Sagittal and coronal reformatted images were obtained on the technologist's workstation. Oral contrast: Yes This CT examination was performed using dose optimization techniques as appropriate, variously including the following: *Automated exposure control *Adjustment of mA and/or kV according to patient size (this includes techniques or standardized protocols for targeted exams where dose is matched to indication/reason for exam; i.e. extremities or head) *Use of iterative reconstruction technique DLP: 438 mGy-cm FINDINGS: LUNG BASES: Mild dependent atelectasis at the posterior lung bases. LIVER, GALLBLADDER, AND BILIARY TREE: The liver is normal in size, shape, and attenuation. No focal hepatic lesion or biliary ductal dilatation is present. The gallbladder is unremarkable with no evidence of radiopaque gallstones, gallbladder wall thickening, or obvious pericholecystic inflammatory changes. PANCREAS: Unremarkable. SPLEEN: Unremarkable. ADRENAL GLANDS: Unremarkable. KIDNEYS AND URETERS: The right kidney has a tiny nonobstructing calyceal calculus in the interpolar region measuring 1 mm in size. The left kidney has a tiny calculus at the edge of the calyx in the upper pole measuring 1 mm in size. Both kidneys are normal in shape and size. No hydronephrosis. No focal abnormality. BLADDER: Unremarkable. GASTROINTESTINAL TRACT: Persistent or recurrent thickening of the mid to distal sigmoid colon, slightly less severe than the previous exam. A few scattered diverticula are seen. A tiny fluid collection at the left lateral wall of the mid sigmoid colon measures 1.6 x 0.4 cm in size and may reflect a small colonic wall/pericolonic abscess, less prominent than the previous examination. No evidence of bowel obstruction. No abnormal thickening of the small bowel or the remainder of the colon. The appendix is normal in size. ABDOMINAL WALL: No significant hernia is appreciated. LYMPH NODES: Normal. VASCULAR: Unremarkable. No evidence of abdominal aortic aneurysm. No evidence of portal or superior mesenteric vein thrombosis. PELVIC VISCERA: The prostate and seminal vesicles are unremarkable. No evidence of free fluid or abscess collection in the pelvis. OSSEOUS STRUCTURES: Unremarkable. CT/CT abdomen pelvis w IV con IMPRESSION: 1. Chronic long segment thickening of the sigmoid colon as noted previously and slightly less severe than the prior exam of 12/21/2020. A tiny fluid collection is suspected at the lateral left margin of the mid sigmoid colon which could reflect a tiny pericolonic abscess. No drainable collections are seen. 2. Tiny bilateral nonobstructive renal calculi. No hydronephrosis. External Record Review External record reviewed: Inpatient record, Office record, Outpatient record, Prior outpatient labs, Prior outpatient radiology, Primary care record and Outside ED record Prescription Management I considered prescription management with: Pain Medication and Antibiotic Chronic Conditions Patient?s care impacted by: Other (Diverticulosis) Social Determinants Patient?s care significantly limited by Social Determinants of Health including: Other Social Determinant of Health Medications Administered Generic Name Dose Route Start Last Admin Trade Name Freq PRN Reason Stop Dose Admin Lactated Ringer's 1,000 mls @ 100 mls/hr 03/04/24 21:00 03/04/24 22:56 Lr IVCONT 100 mls/hr .Q10H AYAD Administration Piperacillin Sod/Tazobactam 100 mls @ 200 mls/hr 03/04/24 21:00 03/04/24 22:35 Sod 4.5 gm/ Sodium Chloride IV Infused Q6H AYAD Infusion Morphine Sulfate 4 mg 03/04/24 20:56 03/04/24 22:53 Morphine Sulfate 4 Mg/Ml Cartridge IVPUSH 4 mg Q4H PRN Administration Pain, Severe (Pain Scale 7-10) Protocol Discontinued Medications Generic Name Dose Route Start Last Admin Trade Name Freq PRN Reason Stop Dose Admin Sodium Chloride 1,000 mls @ 999 mls/hr 03/04/24 18:15 03/04/24 19:45 Ns IV 03/04/24 19:15 Infused .Q1H1M AYAD Infusion Sodium Chloride 1,000 mls @ 999 mls/hr 03/04/24 20:30 03/04/24 22:13 Ns IV 03/04/24 21:30 Infused .Q1H1M AYAD Infusion Iohexol 100 ml 03/04/24 19:05 03/04/24 19:07 Iohexol 350 Mg/Ml 100 Ml Infus..Btl IV 03/04/24 19:06 85 ml ONCE ONE Administration Morphine Sulfate 4 mg 03/04/24 18:11 03/04/24 18:43 Morphine Sulfate 4 Mg/Ml Cartridge IVPUSH 03/04/24 18:12 4 mg ONCE ONE Administration Protocol Ondansetron HCl 4 mg 03/04/24 18:11 03/04/24 18:41 Ondansetron Hcl 4 Mg/2 Ml Vial IVPUSH 03/04/24 18:12 4 mg ONCE ONE Administration Sodium Zirconium Cyclosilicate 10 gm 03/04/24 18:26 03/04/24 18:46 Sodium Zirconium Cyclosilicate 10 Gm Powd.Pack PO 03/04/24 18:27 10 gm ONCE ONE Administration Critical Care Time Critical Care Time Critical Care Time: Yes Total Critical Care Time: 33 Attestation: Critical care time in the amount of 33 minutes has been provided to the patient in terms of direct patient care, frequent reevaluation on IV morphine, consultation with GI doctor and hospitalist, review and interpretation of medical data and results, and management of potentially life-threatening conditions. This is all outside of any medical procedures. Discharge Plan Discharge Clinical Impression: Pericolonic abscess Patient Disposition: Admitted As Inpatient Interventions: Admission Worksheet (ED) Last Done: 03/04/24 22:16
[2024-03-04 18:05] LABS: Basophils Percent Auto 0.2 % (0-2); Eosinophils Percent Auto 0.3 % (0-4); Hematocrit 47.6 % (42.0-52.0); Hemoglobin 15.3 g/dl (14.0-18.0); Imm Gran Abs Auto 0.05 X10*3/uL (0.00-0.03); Imm Gran Pct Auto 0.4 % (0.0-0.4); Lymphocytes Absolute Auto 1.3 X10*3/uL (1.2-4.9); Lymphocytes Percent Auto 11.2 % (20-40); Mean Corpuscular HGB Conc 32.1 g/dl (31.0-36.0); Mean Corpuscular Hemoglobin 28.2 pg (27.0-33.0); Mean Corpuscular Volume 87.7 fL (80.0-98.0); Mean Platelet Volume 9.3 fL (9.4-12.4); Monocytes Absolute Auto 1.3 X10*3/uL (0.1-1.2); Monocytes Percent Auto 10.6 % (2-11); Neutrophils Absolute Auto 9.2 x10*3/uL (2.0-8.3); Neutrophils Percent Auto 77.3 % (45-73); Platelet Count 221 X10*3/uL (160-400); Red Blood Count 5.43 X10*6/uL (4.60-5.80); Red Cell Distribution Width 13.7 % (11.0-16.0); White Blood Count 11.9 X10*3/uL (4.8-10.8)
[2024-03-04 18:18] LABS: Alanine Aminotransferase 23 U/L (0-40); Albumin Level 4.2 g/dL (3.5-5.0); Alkaline Phosphatase 110 U/L (39-117); Anion Gap 18 (12-20); Aspartate Amino Transferase 29 U/L (5-37); Bilirubin Total 0.5 mg/dL (0.0-1.0); Blood Urea Nitrogen 10 mg/dL (9-16); Calcium 9.7 mg/dL (8.4-10.2); Carbon Dioxide 22 mmol/L (22-29); Chloride 104 mmol/L (96-108); Creatinine Clr Calc Pharmacy 103.4; Estimated Glomerular Filt Rate > 60; Glucose Random 96 mg/dL (60-115); Lipase 21 U/L (8-78); Potassium 5.3 mmol/L (3.3-5.1); Sodium 139 mmol/L (135-145); Total Protein 7.9 g/dL (6.5-8.0)
--- NOTE | 2024-03-04 18:25 | ECG_ITS ---
Test Reason : ABD PAIN Blood Pressure : / mmHG Vent. Rate : 066 BPM Atrial Rate : 066 BPM P-R Int : 134 ms QRS Dur : 098 ms QT Int : 408 ms P-R-T Axes : 066 075 051 degrees QTc Int : 427 ms Normal sinus rhythm Normal ECG No previous ECGs available Referred By: Cristal Hernandez Electronically Signed By:JOSEFINA LUCAS MD
[2024-03-04] MEDS: ondansetron HCL 4 MG/2 ML VIAL IVPUSH (18:41)
[2024-03-04 18:43] VITALS: RESP 19
[2024-03-04] MEDS: 0.9 % Sodium Chloride 1,000 ML 999 ML IV ×2 (18:43→20:43)
[2024-03-04] MEDS: Morphine Sulfate 4 MG/ML CARTRIDGE IVPUSH ×2 (18:43→22:53)
[2024-03-04] MEDS: Sodium Zirconium Cyclosilicate 10 GM POWD.PACK PO (18:46)
[2024-03-04 18:47] LABS: Lactic Acid 0.8 mmol/L (0.5-2.0)
--- NOTE | 2024-03-04 18:58 | PC.NURSE ---
patient arrives through external triage complainign of 6/10 abdominal pain for the last few days. states he has had episodes of this in the past, hx of diverticulitis, last flare up was over 2 years ago but patient states this feels the same as it did then. patient reports being nauseous but no vomiting. denies chest pain or shortness of breath. denies any other symptoms. EKG completed at bedside, 18g IV placed in left bicep, blood work drawn and sent, blood cultures and lactic sent. resting comfortably on stretcher at this time, patient medicated per OCT
--- NOTE | 2024-03-04 18:59 | PC.NURSE ---
This RN assumed pt care @ [address] Plan of care ongoing.
[2024-03-04] MEDS: iohexoL 350 MG/ML 100 ML INFUS..BTL IV (19:07)
[2024-03-04 19:44] VITALS: BP 119/79; PULSE 60; RESP 16; TEMP 36.6; O2SAT 99
[2024-03-04 20:43] VITALS: RESP 14
--- NOTE | 2024-03-04 20:47 | PC.NURSE ---
Pt medicated per oct. Plan of care ongoing.
--- NOTE | 2024-03-04 21:00 | PM.IMHP ---
History of Present Illness Date of Service: 03/04/24 Chief Complaint: Abdominal pain This is a 43-year-old male with pertinent history of diverticulitis who presents to the emergency department for evaluation of abdominal pain. Patient states his symptoms started 3 days prior to presentation. He started having left lower quadrant pain which was intermittent initially but progressed to being constant. Also had associated nausea. Reduced p.o. intake due to the pain. Patient had 2 episodes of diarrhea on the day of presentation with bloody streaks during the 2nd episode. Patient states he has had diverticulitis before that started from age 34 and his last flare was 2 years ago. Also admits feeling feverish for the last 2 days but no documented temperature. No chest pain, palpitations, shortness of breath, changes in urinary or bowel habits. In the emergency department, imaging with pericolonic abscess. General surgery was consulted who requested admission with IV antibiotics. Review of Systems Review of Systems: Yes all other systems are reviewed and are negative Constitutional: Constitutional: Reports poor appetite Cardiovascular: Cardiovascular: Reports no additional cardiovascular complaints Respiratory: Respiratory: Reports no additional respiratory complaints Gastrointestinal: Gastrointestinal: Reports abdominal pain Genitourinary: Genitourinary: Reports no additional male genitourinary complaints [facility] Medical History Diverticular disease Viral syndrome Diverticulitis large intestine w/o perforation or abscess w/bleeding Smoker Abnormal CT scan, gastrointestinal tract Colitis Recent surgical procedure on lower extremity History of diverticulitis Family History Father No problems noted. Mother No problems noted. Surgical History Hx of colonoscopy Hx of esophagogastroduodenoscopy S/P hernia repair History of facial surgery Social History Alcohol intake: never Cigarette Packs Per Day: 0.25 Cigarettes Per Day: 5.0 Years Smoked: 8 Smoked in Last 30 Days: No Use of substances other than those prescribed or required for medical reasons: No Substance Use Type: Marijuana Advance Directives: No Advance Directives Information Provided: No Do you have a plan to hurt others: No Plan Meds Allergies Allergy/AdvReac Type Severity Reaction Status Date / Time No Known Allergies Allergy Verified 03/04/24 17:52 Active Medications: Current Medications Sodium Chloride (Ns) 1,000 mls @ 999 mls/hr IV .Q1H1M AYAD Stop: 03/04/24 21:30 Last Admin: 03/04/24 20:43 Dose: 999 mls/hr Physical Exam Vital Signs and Narrative: Vital Signs: Last Vital Signs Temp 97.9 F 03/04/24 19:44 Pulse 60 03/04/24 19:44 Resp 14 03/04/24 20:43 BP 119/79 03/04/24 19:44 Pulse Ox 99 03/04/24 19:44 O2 Del Method Room Air 03/04/24 19:44 BMI result Body Mass Index 24.0 Middle-aged male lying in bed in no distress Neck supple, no JVD Regular rate and rhythm, S1-S2 heard Regular breath sounds bilaterally, no wheezing or crackles appreciated Abdomen with tenderness to palpation in the left lower quadrant region, no guarding, no rigidity, no rebound tenderness Patient is awake, alert and oriented to self, place, time and person ; no focal motor deficit Psych: Normal mood No pedal edema Results Labs 03/04/24 17:59 03/04/24 17:59 Labs: Laboratory Results - last 24 hr 03/04/24 03/04/24 17:59 18:31 MCV 87.7 MCH 28.2 MCHC 32.1 RDW 13.7 Plt Count 221 MPV 9.3 L Immature Gran % (Auto) 0.4 Neut % (Auto) 77.3 H Lymph % (Auto) 11.2 L [place] % (Auto) 10.6 Eos % (Auto) 0.3 Baso % (Auto) 0.2 Lymph # (Auto) 1.3 [place] # (Auto) 1.3 H Eos # (Auto) 0.0 Baso # (Auto) 0.0 Abs Immat Gran (auto) 0.05 H Absolute Neuts (auto) 9.2 H Absolute Nucleated RBC 0.000 Nucleated RBC % (auto) 0.0 Anion Gap 18 Estim Creat Clear Calc 103.4 Estimated GFR > 60 Random Glucose 96 Lactic Acid 0.8 Calcium 9.7 Total Bilirubin 0.5 AST 29 ALT 23 Alkaline Phosphatase 110 Total Protein 7.9 Albumin 4.2 Lipase 21 Imaging Radiologist's Impressions: Impressions Abdomen/Pelvis CT 03/04/24 19:17 IMPRESSION: 1. Chronic long segment thickening of the sigmoid colon as noted previously and slightly less severe than the prior exam of 12/21/2020. A tiny fluid collection is suspected at the lateral left margin of the mid sigmoid colon which could reflect a tiny pericolonic abscess. No drainable collections are seen. 2. Tiny bilateral nonobstructive renal calculi. No hydronephrosis. Assessment and Plan (1) Pericolonic abscess: Status: Acute Plan This is a 43-year-old male with pertinent history of diverticulitis who presents to the emergency department for evaluation of abdominal pain. #. Rubi-colonic abscess: Will admit patient with IV Zosyn. IV opioids p.r.n. for analgesia. Consulting general surgery, appreciate assistance DVT prophylaxis: Mechanical Full code Admit as inpatient and will require two night minimum hospital stay for IV antibiotics (as above), which is not possible in a lesser acute setting. Quality Stroke Does the patient have a stroke diagnosis?: No VTE Prior VTE?: No VTE Risk Level:: Medical - moderate - high VTE Device Contraindication: N/A - Device Ordered VTE Drug Contraindication: Treatment Not Indicated
[2024-03-04] MEDS: Piperacillin Sodium/Tazobactam 4.5 GM in 0.9 % Sodium Chloride 100 ML IV (22:00)
[2024-03-04] MEDS: Lactated Ringers 1,000 ML 100 ML IVCONT (22:56)
--- NOTE | 2024-03-04 22:56 | PC.NURSE ---
Lactated ringers given late d/t abx running.
--- NOTE | 2024-03-04 23:01 | PC.NURSE ---
Pt medicated per oct. Plan of care ongoing.
[2024-03-04 23:35] VITALS: RESP 14
[2024-03-05 00:13] VITALS: BMI 23.8
[2024-03-05 00:15] VITALS: BP 132/85; PULSE 59; RESP 16; TEMP 36.7; O2SAT 98
[2024-03-05 03:07] VITALS: BP 120/70; PULSE 56; RESP 16; TEMP 37.2; O2SAT 98
[2024-03-05] MEDS: Piperacillin Sodium/Tazobactam 4.5 GM in 0.9 % Sodium Chloride 100 ML IV ×4 (03:34→21:52)
[2024-03-05 06:07] LABS: MANUAL DIFF FLAG NO
[2024-03-05 06:28] LABS: Basophils Percent Auto 0.3 % (0-2); Eosinophils Absolute Auto 0.1 X10*3/uL (0.0-0.4); Eosinophils Percent Auto 1.4 % (0-4); Hematocrit 38.6 % (42.0-52.0); Hemoglobin 12.4 g/dl (14.0-18.0); Imm Gran Abs Auto 0.04 X10*3/uL (0.00-0.03); Imm Gran Pct Auto 0.4 % (0.0-0.4); Lymphocytes Absolute Auto 2.5 X10*3/uL (1.2-4.9); Lymphocytes Percent Auto 24.2 % (20-40); Mean Corpuscular HGB Conc 32.1 g/dl (31.0-36.0); Mean Corpuscular Hemoglobin 28.5 pg (27.0-33.0); Mean Corpuscular Volume 88.7 fL (80.0-98.0); Mean Platelet Volume 10.3 fL (9.4-12.4); Monocytes Absolute Auto 1.3 X10*3/uL (0.1-1.2); Monocytes Percent Auto 12.1 % (2-11); Neutrophils Absolute Auto 6.3 x10*3/uL (2.0-8.3); Neutrophils Percent Auto 61.6 % (45-73); Platelet Count 184 X10*3/uL (160-400); Red Blood Count 4.35 X10*6/uL (4.60-5.80); Red Cell Distribution Width 13.6 % (11.0-16.0); White Blood Count 10.3 X10*3/uL (4.8-10.8)
[2024-03-05 06:47] LABS: Anion Gap 13 (12-20); Blood Urea Nitrogen 7 mg/dL (9-16); Calcium 8.8 mg/dL (8.4-10.2); Carbon Dioxide 22 mmol/L (22-29); Chloride 106 mmol/L (96-108); Creatinine Clr Calc Pharmacy 116.7; Estimated Glomerular Filt Rate > 60; Glucose Random 77 mg/dL (60-115); Potassium 3.9 mmol/L (3.3-5.1); Sodium 137 mmol/L (135-145)
--- NOTE | 2024-03-05 07:55 | P.CONGS_ITS ---
History of Present Illness Consult details Consult date: 03/05/24 Requesting physician: Tessie Riojas Narrative: 43-year-old male patient presenting to the emergency department with complaints of left lower quadrant abdominal pain of 3 days' duration. Pain became more sharp and constant in the range of 8-9 out of 10 in severity. He reports a previous episode in 2021 which was quite similar. The current episode was associated with nausea without vomiting. He does report occasional bleeding per rectum, mainly streaking. He presented to the emergency department for evaluation and was noted to have tenderness in the left lower quadrant. Initial laboratories revealed a WBC of 11.9. CT abdomen and pelvis revealed a chronic long segment of thickening in the sigmoid colon, thought to be the LEs severe than prior examination on 12/21/2020. A tiny fluid collection in the left lateral margin of the mid sigmoid colon was thought to reflect a tiny pericolic abscess. No drainable collections were identified. Incidentally noted were bilateral nonobstructing renal calculi without hydronephrosis. The patient was admitted to the hospitalist service for IV antibiotics. This morning he reports the abdominal pain is much improved 2 to 3/10 in severity. He denies a bowel movement since admission. Review of Systems 2 Review of Systems: Yes all other systems are reviewed and are negative Constitutional: Constitutional: Denies chills, Denies fever(s), Denies headache(s), Reports poor appetite and Denies weakness ENT: Denies headache(s) Cardiovascular: Cardiovascular: Denies chest pain, Denies irregular heart rhythm, Denies palpitations and Denies dyspnea Respiratory: Respiratory: Denies cough, Denies excessive phlegm production and Denies dyspnea Gastrointestinal: Gastrointestinal: Reports abdominal pain, Reports bloating, Denies change in bowel habits, Reports constipation, Denies heartburn, Denies diarrhea, Reports nausea and Denies vomiting Genitourinary: Genitourinary: Denies difficulty urinating and Denies urinary frequency Musculoskeletal: Musculoskeletal: Denies back pain, Denies muscle weakness and Denies numbness Integumentary/Breasts: Skin/Breast: Denies changing lesions and Denies unusual bruising Neurologic: Denies headache(s), Denies numbness, Denies paresthesias and Denies weakness Psychiatric: Psychiatric: Denies anxiety and Denies depression Endocrine: Endocrine: Denies palpitations Hematologic/Lymphatic: Hematologic/Lymphatic: Denies lymphadenopathy PMFSH Past Medical History Medical History Diverticular disease Viral syndrome Diverticulitis large intestine w/o perforation or abscess w/bleeding Smoker Abnormal CT scan, gastrointestinal tract Colitis Recent surgical procedure on lower extremity History of diverticulitis Family History Family History Father No problems noted. Mother No problems noted. Surgical History Surgical History Hx of colonoscopy Hx of esophagogastroduodenoscopy S/P hernia repair History of facial surgery Social History Social History Household Members: Family Housing: House Alcohol intake: never Patient Tobacco Use Status: Current everyday Tobacco user Tobacco use type: Cigarette Cigarette Packs Per Day: 0.25 Cigarettes Per Day: 4 Years Smoked: 8 Substance Use Type: Marijuana Meds Allergies Allergy/AdvReac Type Severity Reaction Status Date / Time No Known Allergies Allergy Verified 03/04/24 17:52 Active Medications: Current Medications Acetaminophen (Acetaminophen 325 Mg Tablet) 650 mg PO Q6H PRN PRN Reason: Pain, Mild (Pain Scale 1-3), fever or headache Calcium Carbonate (Calcium Carbonate 750 Mg Tab.Chew) 750 mg PO Q4H PRN PRN Reason: Heartburn Lactated Ringer's (Lr) 1,000 mls @ 100 mls/hr IVCONT .Q10H [facility] Last Infusion: 03/05/24 04:05 Dose: 100 mls/hr Piperacillin Sod/Tazobactam (Sod 4.5 gm/ Sodium Chloride) 100 mls @ 200 mls/hr IV Q6H [facility] Last Infusion: 03/05/24 04:05 Dose: Infused Magnesium Hydroxide (Milk Of Magnesia 30 Ml Oral.Susp) 30 ml PO DAILY PRN PRN Reason: Constipation Melatonin (Melatonin 3 Mg Tablet) 6 mg PO BEDTIME PRN PRN Reason: Insomnia Morphine Sulfate (Morphine Sulfate 4 Mg/Ml Cartridge) 4 mg IVPUSH Q4H PRN; Protocol PRN Reason: Pain, Severe (Pain Scale 7-10) Last Admin: 03/04/24 22:53 Dose: 4 mg Ondansetron HCl (Ondansetron Hcl 4 Mg/2 Ml Vial) 4 mg IVPUSH Q8H PRN PRN Reason: Nausea and Vomiting Sodium Chloride (0.9 % Sodium Chloride Flush 3 Ml Syringe) 3 ml IVFLUSH QSHIFT AYAD Last Admin: 03/05/24 00:17 Dose: Not Given Physical Exam 2 Vital Signs: Vital Signs: Last Vital Signs Temp 99.0 F 03/05/24 03:07 Pulse 56 03/05/24 03:07 Resp 16 03/05/24 03:07 BP 120/70 03/05/24 03:07 Pulse Ox 98 03/05/24 03:07 O2 Del Method Room Air 03/05/24 03:07 BMI result Body Mass Index 23.8 Const: General: cooperative and no acute distress Nutritional Appearance: w ell nourished Orientation/consciousness: patient oriented x3 Limitations: no limitations HEENT: Head: Yes normocephalic and Yes atraumatic Ears: hearing grossly normal bilaterally Resp: Effort & Inspection: normal respiratory effort, no audible wheezes, no cough and no respiratory distress Cardio: Jugular venous distension: no JVD GI: Other: Soft, mild tenderness in the left lower quadrant without rebound, guarding or rigidity. No palpable mass. Inspection: Yes normal to inspection Skin: Other: Warm, dry, no rash Neuro: General: patient oriented x3 Extrem: General: Yes no clubbing, cyanosis or edema Results Labs 03/05/24 05:24 03/05/24 05:24 Labs: Abnormal lab results 03/04/24 03/05/24 Range/Units 17:59 05:24 WBC 11.9 H (4.8-10.8) X10*3/uL RBC 4.35 L (4.60-5.80) X10*6/uL Hgb 12.4 L (14.0-18.0) g/dl Hct 38.6 L (42.0-52.0) % MPV 9.3 L (9.4-12.4) fL Neut % (Auto) 77.3 H (45-73) % Lymph % (Auto) 11.2 L (20-40) % [place] % (Auto) 12.1 H (2-11) % [place] # (Auto) 1.3 H 1.3 H (0.1-1.2) X10*3/uL Abs Immat Gran (auto) 0.05 H 0.04 H (0.00-0.03) X10*3/uL Absolute Neuts (auto) 9.2 H (2.0-8.3) x10*3/uL Potassium 5.3 H (3.3-5.1) mmol/L BUN 7 L (9-16) mg/dL Short CBC 03/04/24 03/05/24 Range/Units 17:59 05:24 WBC 11.9 H 10.3 (4.8-10.8) X10*3/uL Hgb 15.3 12.4 L (14.0-18.0) g/dl Hct 47.6 38.6 L (42.0-52.0) % Plt Count 221 184 (160-400) X10*3/uL BMP 03/04/24 03/05/24 17:59 05:24 Sodium 139 137 Potassium 5.3 H 3.9 D Chloride 104 106 Carbon Dioxide 22 22 BUN 10 7 L Creatinine 0.97 0.86 Calcium 9.7 8.8 D Liver Function 03/04/24 Range/Units 17:59 Total Bilirubin 0.5 (0.0-1.0) mg/dL AST 29 (5-37) U/L ALT 23 (0-40) U/L Alkaline Phosphatase 110 (39-117) U/L Albumin 4.2 (3.5-5.0) g/dL All other labs normal. Assessment and Plan (1) Pericolonic abscess: Status: Acute (2) Diverticular disease: Status: Acute Plan 43-year-old male patient with a recurrent episode of diverticulitis with a pericolonic abscess. Overall the patient is much improved this morning. Recommend starting a diet as tolerated and transition to oral antibiotics. He should follow up as an outpatient for consideration of an elective sigmoid colectomy once the acute inflammation has resolved. The patient expressed understanding and agrees with the plan. Procedures Date of Service Date of Service: 03/05/24
[2024-03-05 08:00] VITALS: BP 113/69; PULSE 54; RESP 18; TEMP 36.8; O2SAT 97
--- NOTE | 2024-03-05 08:37 | P.PNIM_ITS ---
Subjective Subjective Date of Service: 03/05/24 Review of Systems Follow up diverticulits, perirectal abscess doing better, still with some pain to LLQ no nausea or vomiting Physical Exam 2 Vital Signs: Vital Signs: Last Vital Signs Temp 98.2 F 03/05/24 08:00 Pulse 54 03/05/24 08:00 Resp 18 03/05/24 08:00 BP 113/69 03/05/24 08:00 Pulse Ox 97 03/05/24 08:00 O2 Del Method Room Air 03/05/24 08:00 BMI result Body Mass Index 23.8 Appearing in no acute distress lung sounds are clear to auscultation heart regular rate rhythm, clear S1, S2 positive bowel sounds, abdomen is soft, nontender neuro patient is alert x3, no focal deficits Objective Data Active Medications Acetaminophen (Acetaminophen 325 Mg Tablet) 650 mg PO Q6H PRN PRN Reason: Pain, Mild (Pain Scale 1-3), fever or headache Calcium Carbonate (Calcium Carbonate 750 Mg Tab.Chew) 750 mg PO Q4H PRN PRN Reason: Heartburn Lactated Ringer's (Lr) 1,000 mls @ 100 mls/hr IVCONT .Q10H [facility] Last Infusion: 03/05/24 04:05 Dose: 100 mls/hr Documented By: DANETTE Piperacillin Sod/Tazobactam (Sod 4.5 gm/ Sodium Chloride) 100 mls @ 200 mls/hr IV Q6H [facility] Last Infusion: 03/05/24 04:05 Dose: Infused Documented By: DANETTE Magnesium Hydroxide (Milk Of Magnesia 30 Ml Oral.Susp) 30 ml PO DAILY PRN PRN Reason: Constipation Melatonin (Melatonin 3 Mg Tablet) 6 mg PO BEDTIME PRN PRN Reason: Insomnia Morphine Sulfate (Morphine Sulfate 4 Mg/Ml Cartridge) 4 mg IVPUSH Q4H PRN; Protocol PRN Reason: Pain, Severe (Pain Scale 7-10) Last Admin: 03/04/24 22:53 Dose: 4 mg Documented By: DONG Ondansetron HCl (Ondansetron Hcl 4 Mg/2 Ml Vial) 4 mg IVPUSH Q8H PRN PRN Reason: Nausea and Vomiting Sodium Chloride (0.9 % Sodium Chloride Flush 3 Ml Syringe) [facility] Last Admin: 03/05/24 00:17 Dose: Not Given Documented By: LIMA Non-Admin Reason: IV Running Labs 03/05/24 05:24 03/05/24 05:24 Labs: Laboratory Results - last 24 hr 03/04/24 03/04/24 03/05/24 17:59 18:31 05:24 MCV 87.7 88.7 MCH 28.2 28.5 MCHC 32.1 32.1 RDW 13.7 13.6 Plt Count 221 184 MPV 9.3 L 10.3 Immature Gran % (Auto) 0.4 0.4 Neut % (Auto) 77.3 H 61.6 Lymph % (Auto) 11.2 L 24.2 [place] % (Auto) 10.6 12.1 H Eos % (Auto) 0.3 1.4 Baso % (Auto) 0.2 0.3 Lymph # (Auto) 1.3 2.5 [place] # (Auto) 1.3 H 1.3 H Eos # (Auto) 0.0 0.1 Baso # (Auto) 0.0 0.0 Abs Immat Gran (auto) 0.05 H 0.04 H Absolute Neuts (auto) 9.2 H 6.3 Absolute Nucleated RBC 0.000 0.000 Nucleated RBC % (auto) 0.0 0.0 Anion Gap 18 13 Estim Creat Clear Calc 103.4 116.7 Estimated GFR > 60 > 60 Random Glucose 96 77 Lactic Acid 0.8 Calcium 9.7 8.8 D Total Bilirubin 0.5 AST 29 ALT 23 Alkaline Phosphatase 110 Total Protein 7.9 Albumin 4.2 Lipase 21 Assessment and Plan (1) Pericolonic abscess: Status: Acute Plan This is a 43-year-old male with pertinent history of diverticulitis who presents to the emergency department for evaluation of abdominal pain. Rubi-colonic abscess secondary to diverticulitis continue IV Zosyn. IV opioids p.r.n. for analgesia. Consulting general surgery>improving, start diet as tolerated, oral abx for dc, follow up with gensurg o/p advance diet DVT prophylaxis: Mechanical Attending Dr. Landon Full code Admit as inpatient and will require two night minimum hospital stay for IV antibiotics (as above), which is not possible in a lesser acute setting. Quality Stroke Does the patient have a stroke diagnosis?: No VTE Prior VTE?: No VTE Risk Level:: Medical - moderate - high VTE Device Contraindication: N/A - Device Ordered VTE Drug Contraindication: Treatment Not Indicated
--- NOTE | 2024-03-05 09:02 | PHA.MEDREC ---
Pharmacy Consult ? Medication Reconciliation Pharmacy has completed the medication reconciliation.
[2024-03-05] MEDS: 0.9 % Sodium Chloride Flush 3 ML SYRINGE IVFLUSH ×2 (09:35→15:41)
[2024-03-05] MEDS: Lactated Ringers 1,000 ML 100 ML IVCONT (09:36)
--- NOTE | 2024-03-05 09:50 | MHC.CM.PN ---
PT REPORTS HE LIVES WITH HIS EX-GIRLFRIEND AND HER SISTER HE IS INDEPENDENT WITH CARE AND HAS NO DME PT DECLINES TO COMPLETE A HCP HE HAS NO PCP PT IS AWARE HIS HEALTH INSURANCE HAS CHANGED, BUT DECLINES A REFERRAL [place] [facility] [place] HE SAYS MH JUST KEEPS CHANGING HIS PLAN AND HE DOES NOT WANT TO DEAL WITH IT ANY LONGER DCP: HOME NO SERVICES VIA PRIVATE TRANSPORT
[2024-03-05 15:20] VITALS: BP 116/67; PULSE 62; RESP 18; TEMP 37.3; O2SAT 97
[2024-03-05 20:00] VITALS: BP 119/75; PULSE 66; RESP 16; TEMP 36.6; O2SAT 99
[2024-03-06 03:09] VITALS: BP 136/68; PULSE 55; RESP 16; TEMP 36.4; O2SAT 98
[2024-03-06] MEDS: Piperacillin Sodium/Tazobactam 4.5 GM in 0.9 % Sodium Chloride 100 ML IV ×2 (03:16→08:19)
[2024-03-06 07:16] VITALS: BP 122/85; PULSE 50; RESP 18; TEMP 36; O2SAT 98
--- NOTE | 2024-03-06 07:33 | P.DS_ITS ---
DS: Providers Provider Date of Service: 03/06/24 Date of admission: 03/04/24 20:56 Date of discharge: 03/06/24 Primary care physician: Unknown Physician Attending physician on admission: Ean Montalvo Consults: 03/04/24 20:56 Consult to General Surgery Routine Consulting Provider[facility] Reason for consultation: pericolonic abscess Attending physician on discharge: Lincoln Aponte Discharging clinician: Agatha Esquivel DS: Diagnosis Discharge Diagnosis (1) Pericolonic abscess: Status: Acute DS: Summary Hospital Course Hospital Course: HPI on admission by Dr. Montalvo 03/04: ]Chief Complaint: Abdominal pain This is a 43-year-old male with pertinent history of diverticulitis who presents to the emergency department for evaluation of abdominal pain. Patient states his symptoms started 3 days prior to presentation. He started having left lower quadrant pain which was intermittent initially but progressed to being constant. Also had associated nausea. Reduced p.o. intake due to the pain. Patient had 2 episodes of diarrhea on the day of presentation with bloody streaks during the 2nd episode. Patient states he has had diverticulitis before that started from age 34 and his last flare was 2 years ago. Also admits feeling feverish for the last 2 days but no documented temperature. No chest pain, palpitations, shortness of breath, changes in urinary or bowel habits. In the emergency department, imaging with pericolonic abscess. General surgery was consulted who requested admission with IV antibiotics. Hospital course: Course uneventful. Pt admitted to med/surg for pericolonic abscess r/t diverticulitis. Pt has had multiple flares of diverticulitis. Treated empir ically with IV zosyn. Seen by general surgery who did not recommend inpt surgical intervention. Received IV opioids for pain control and was admitted on liquid diet. Pain improved with antibiotics and diet was successfully advanced. Pt discharged on flagyl 500mg TID and levaquin 750mg daily x 10 days. Advised to follow up outpatient with general surgery to consider elective sigmoidectomy. Leukocytosis resolved with IV abx. Vitals stable. No sepsis/severe sepsis. Time spent discussing smoking cessation with patient: 3 to 10 minutes Time Attestation Discharge Coordination Time (in mins): 35 Quality: Safe Use of Opioids Does Pt have an Active Cancer Diagnosis on the Problem List?: No Quality: Stroke Does the patient have a stroke diagnosis?: No Physical Exam Vital Signs: Vital Signs: Last Vital Signs Temp 96.8 F 03/06/24 07:16 Pulse 50 03/06/24 07:16 Resp 18 03/06/24 07:16 BP 122/85 03/06/24 07:16 Pulse Ox 98 03/06/24 07:16 O2 Del Method Room Air 03/06/24 07:16 BMI result Body Mass Index 23.8 Constitutional - Awake and Alert, No apparent distress Eyes - PERRLA, EOMI Cardiovascular - S1S2, RRR, No edema Respiratory - Normal lung expansion, Normal respiratory effort, No respiratory distress, CTA bilaterally Gastrointestinal - mild llq ttp without any guarding or rebound. ND; +BS Extremities - no calf tenderness bilaterally, no swelling Skin - Warm/Dry Neurological - Alert & oriented x3 Psychological - Appropriate affect DS: Data Data Completed and Pending Labs on day of discharge: Preliminary micro results at discharge 03/04/24 18:40 Blood Culture - Preliminary Blood - Venous No growth after 24 hours. 03/04/24 18:31 Blood Culture - Preliminary Blood - Venous No growth after 24 hours. Discharge Plan Discharge Anticipated Discharge Date/Time: 03/06/24 11:40 Patient Disposition: Home, Self-Care Discharge Diagnosis: acute diverticulitis Referrals: Negro Strong MD [Physician] - 2 Weeks Physician,Naomy Pimentel [Physician] - 1 Week Discharge Medications: New levofloxacin 750 mg tablet 750 mg PO DAILY Qty: 10 0RF metronidazole 500 mg Tablet 500 mg PO Q8H Qty: 30 0RF nicotine [Nicoderm CQ] 7 mg/24 hr patch 24 hour 1 patch transdermal Q24H Qty: 14 0RF Discharge Orders: Discharge Order (Routine); Ordered 03/06/24 Ordered By: Agatha Esquivel Diet: Advance to usual diet Activity on Discharge: As tolerated Stand Alone Forms: Patient Portal Discharge page Print Language: Indian Care Plan Goals: Continue antibiotics to treat and resolve acute diverticulitis with abscess Follow up with general surgery and gastroenterology Health Concerns: Acute diverticulitis with pericolonic abscess Plan of Treatment: Acute diverticulitis with pericolonic abscess -take levofloxacin (levaquin) 750mg daily x 10 days and metronidazole 500mg every 8 hours x10 days -advance diet as tolerated -Follow up outpatient with your airplane rental clerk (Dr. Robb/Alexa Vega) and general surgery (Dr. Strong, referral placed) Assessment: See above, see discharge summary Discharge Date/Time: 03/06/24 14:14
[2024-03-06] MEDS: 0.9 % Sodium Chloride Flush 3 ML SYRINGE IVFLUSH ×2 (08:19)
--- NOTE | 2024-03-06 10:17 | MHC.CM.PN ---
pt to be dcd home self care
[2024-03-06] MEDS: metroNIDAZOLE 500 MG TABLET PO (12:07)
[2024-03-06] MEDS: levoFLOXacin 750 MG TABLET PO (12:07)
== END 2024-03-06 14:14 | disposition home or self-care (01) | DRG 392 ==
LOC: HO.ED 21:23 → HO.EDOVER 21:25 → HO.S3 21:49
PROVIDERS: Physician Assistant Medical; Admitting Provider Student in an Organized Health Care Education/Training Program; Emergency Provider Emergency Medicine; Visit Provider Physician Assistant
DX: K57.20 Diverticulitis of large intestine with perforation and abscess without bleeding (principal); F17.210 Nicotine dependence, cigarettes, uncomplicated; Z71.6 Tobacco abuse counseling
CPT/HCPCS: 36415; 74177; 80048; 80053; 83605; 83690; 85025; 87040; 93005; 99285; J2270; J2405; J2543; J7120; Q9967

== ENCOUNTER → 2024-03-04 18:25 | Outpatient (BNV) | payer SELFPAY | PROVIDERS: Admitting Provider Student in an Organized Health Care Education/Training Program; Emergency Provider Emergency Medicine; Visit Provider Internal Medicine Cardiovascular Disease | DX: R10.9 Unspecified abdominal pain (principal) | CPT/HCPCS: 93010 ==

== ENCOUNTER → 2024-03-04 20:56 | Outpatient (BNV) | payer SELFPAY | PROVIDERS: Admitting Provider Student in an Organized Health Care Education/Training Program; Emergency Provider Emergency Medicine; Visit Provider Student in an Organized Health Care Education/Training Program | DX: K63.0 Abscess of intestine (principal) | CPT/HCPCS: 99222; 99232; 99239 ==

== ENCOUNTER → 2024-03-04 20:56 | Outpatient (BNV) | payer SELFPAY | PROVIDERS: Admitting Provider Student in an Organized Health Care Education/Training Program; Emergency Provider Emergency Medicine; Visit Provider Surgery | DX: K63.0 Abscess of intestine (principal); K57.90 Diverticulosis of intestine, part unspecified, without perforation or abscess without bleeding | CPT/HCPCS: 99222 ==

== ENCOUNTER 2024-09-27 14:28 | Outpatient (AMB) | payer BC, SELFPAY ==
--- NOTE | 2024-09-27 14:49 | A.OFFPC_ITS ---
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 Injured left arm at the gym 4 months ago, and its still bothering pt. 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 Musculoskeletal: The patient reports the onset of the pain approximately four months ago following physical exertion at the gym, where he engaged in repetitive motion involving a crowbar. The patient describes the pain as a sharp, achy sensation located on the outside of the left elbow, exacerbated by lifting objects with some weight. The pain restricts the patient from engaging in regular fitness activities, particularly his boxing routines, which are significant to his current exercise regimen. The patient had no previous injury to the elbow nor has he received any injections for treatment. He attempted self-management by resting the affected elbow but reports no resolution of symptoms over this period. GI: In addition, the patient has a history of gastrointestinal issues, specifically diverticulosis, managed through dietary modifications and increased fiber intake. Previous episodes include bowel-related symptoms and an abscess that contributed to significant abdominal pain and distress, now reportedly better managed. The patient denies seeing a plant maintenance engineer currently but mentions previous evaluations including a colonoscopy and endoscopy conducted five years ago without adverse findings. Health Maintenance - Dietary modifications to include incre ased fiber for diverticulosis management. - Exercise regimen and increased water i ntake for diverticulosis prevention. - Reduction of cigarette smoking in prog ress. - Full physical examination requested, i ncluding screening laboratory tests (blood sugar, cholesterol, liver and kidney function). - Preventive care discussions for colon cancer screening beginning at age 47. 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 - Engages in regular physical exercise, planning to participate in boxing activities. - Lifestyle includes dietary management, avoiding late-night meals, and in corporating oatmeal for breakfast. - Family history includes a grandmother with pulmonary cancer attributed to smoking. - Actively reducing cigarette smoking. Review of Systems - Cardiovascular: Denies chest pain or d iscomfort. - Gastrointestinal: Denies current const ipation or abdominal pain. - Genitourinary: Reports checking for te sticular lumps, no abnormalities noted. - Musculoskeletal: Reports pain over the lateral aspect of the left elbow with activity. - Neurological: No episodes of weakness, dizziness, or tingling reported. Physical Exam General: Well developed, well nourished, in no acute distress. Appears stated age. Cardiac: RRR, no murmurs Lungs: clear, equal breath sounds Abdomen: soft, nontender, no CVA tenderness Extremities: no edema, tenderness noted proximal to the left lateral epicondyle. There is no tenderness otherwise. Full range of motion. Supination and pronation does elicit some discomfort. Strength intact. Sensation intact. Neuro: alert, oriented x3, mood appropriate Plan - Refer the patient to Orthopedics for e valuation of possible left lateral epicondylitis to explore further management options, including potential bracing or physical therapy. He wants to hold off on this until he sees orthopedics. - An X-ray of the left elbow is ordered to assess for any structural abnormalities contributing to symptoms. - Encourage [id number] elbow strap s and minimize activities that exacerbate pain. - Discussed avoidance of NSAIDs given th e history of gastrointestinal issues. - Recommend continuation of current diet elsie measures and emphasize the continuation of smoking cessation efforts for overall health improvement. - Full panel of screening blood work ord ered to evaluate general health status and screen for potential underlying conditions. - Schedule follow-up in six months to re assess treatment outcomes and address any new or ongoing concerns. [facility] Medical History Diverticular disease Viral syndrome Diverticulitis large intestine w/o perforation or abscess w/bleeding Smoker Abnormal CT scan, gastrointestinal tract Colitis Recent surgical procedure on lower extremity History of diverticulitis Surgical History Hx of colonoscopy Hx of esophagogastroduodenoscopy S/P hernia repair History of facial surgery Family History (Updated 09/27/24 @ 14:51 by Evelia Wu CMA) Father No problems noted. Mother No problems noted. 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 1. Little interest or pleasure in doing things: not at all 2. Feeling down, depressed, or hopeless: several days 3. Trouble falling or staying asleep, or sleeping too much: not at all 4. Feeling tired or having little energy: several days 5. Poor appetite or overeating: several days 6. Feeling bad about yourself - or that you are a failure or have let yourself or your family down: not at all 7. Trouble concentrating on things, such as reading the newspaper or watching television: not at all 8. Moving or speaking so slowly that other people could have noticed. Or the opposite - being so fidgety or restless that you have been moving around a lot more than usual: not at all 9. Thoughts that you would be better off or of hurting yourself in some way: not at all Total score: 3 Depression Screening Interpretation: Negative Depression Screening Done: Yes 04400 - PHQ-9 Billing: Yes Source: Developed by Drs. Kvng Haskins, Romina Luevano, Hira Mayes and colleagues, with an educational vaa from [employer]. Thrive Questionnaire Date Thrive assessed: 03/05/24 I am a: Patient What is your living situation today?: I have a steady place to live Within the past 12 months, did the food you bought not last and you didn't have the money to get more?: Sometimes True Within the past 12 months, did you worry whether your food would run out before you got money to buy more?: Sometimes True Do you have trouble paying for medicines?: No Do you have trouble getting transportation to medical appointments?: No Do you have trouble paying your heating and electricity bill?: No Do you have trouble taking care of your child, family member or friend?: No Do you have trouble with day-to-day activities such as bathing, preparing meals, shopping, managing finances, etc.?: I choose not to answer this question Are you currently unemployed and looking for a job?: No Are you interested in more education?: Yes Please select the resources that you would like help with: None Currently or been in a relationship where the following occur: No concerns reported THRIVE Score: 2 AUDIT C Alcohol Use Questionnaire (AUDIT-C) 1. How often do you have a drink containing alcohol?: Monthly or less 2. How many drinks containing alcohol do you have on a typical day when you are drinking?: 1 or 2 3. How often do you have six or more drinks on one occasion?: Never Total Score: 1 SAMI-7 AMB Questionnaire SAMI-7 Feeling nervous, anxious, or on edge: 1 = Several days Not being able to stop or control worryin = Not at all Worrying too much about different things: 1 = Several days Trouble relaxin = Not at all Being so restless that it is hard to sit still: 0 = Not at all Becoming easily annoyed or irritable: 2 = More than half the days Feeling afraid as if something awful might happen: 0 = Not at all Total SAMI-7 score (0-4 normal; 5-9 mild; 10-14 moderate; 15-21 severe): 4 Source: Developed by Drs. Kvng Haskins, Romina Luevano, Hira Mayes and colleagues, with an educational ava from [employer]. SAMI-7 Assessment Billing SAMI-7 Assessment Tool: SAMI-7 Assessment 73451 Physical exam (Primary Care) Vital Signs: Last Vital Signs Pulse 69 09/27/24 14:56 Resp 16 09/27/24 14:56 BP 108/72 09/27/24 14:56 Pulse Ox 97 09/27/24 14:56 Oxygen Delivery Method Room Air 09/27/24 14:56 BMI result Body Mass Index 23.4 Tobacco/Smoking Status: Tobacco use Status Patient Tobacco Use Status Current everyday Tobacco 09/27/24 14:59 Tobacco use type Cigarette 09/27/24 14:59 e-Cigarette/Vaping Use Never Used 09/27/24 14:59 PHQ-9: PHQ-9 Score PHQ-9: Total score 3 09/27/24 15:22 Depression Screening Interpretation: Negative Thrive Assessment: Date of Thrive Assessment Date Thrive assessed 03/05/24 09/27/24 14:59 Currently or been in a relationship where the following occur: No concerns reported Results Reviewed Results Reviewed: CT/CT abdomen pelvis w IV con IMPRESSION: 1. Chronic long segment thickening of the sigmoid colon as noted previously and slightly less severe than the prior exam of 12/21/2020. A tiny fluid collection is suspected at the lateral left margin of the mid sigmoid colon which could reflect a tiny pericolonic abscess. No drainable collections are seen. 2. Tiny bilateral nonobstructive renal calculi. No hydronephrosis. Coding Level of Care Code New Pt Level 3 (09703) Diagnoses Diverticular disease K57.90 Left elbow pain M25.522 Additional Codes SAMI-7 Assessment Billing - SAMI-7 Assessment Tool: SAMI-7 Assessment 26024 ([id number]) PHQ-9 - 73907 - PHQ-9 Billing: Yes ([id number]) Assessment & Plan Assessment & Plan (1) Diverticular disease: Code(s): K57.90 - Diverticulosis of intestine, part unspecified, without perforation or abscess without bleeding Category: Medical (2) Left elbow pain: Code(s): M25.522 - Pain in left elbow Category: Medical Plan . Orders: Orders Comprehensive [place]. Panel Fast Today K57.90 - Diverticulosis of intestine, part unspecified, without perforation or abscess without bleeding, M25.522 - Pain in left elbow, Z01.89 - Encounter for other specified special examinations TSH reflex Free T4 Today K57.90 - Diverticulosis of intestine, part unspecified, without perforation or abscess without bleeding, M25.522 - Pain in left elbow, Z01.89 - Encounter for other specified special examinations XR elbow LT min 3V Today M25.522 - Pain in left elbow Complete Blood Count Auto Diff Today K57.90 - Diverticulosis of intestine, part unspecified, without perforation or abscess without bleeding, M25.522 - Pain in left elbow, Z01.89 - Encounter for other specified special examinations UA CC w/rflx Micro + Cult Today K57.90 - Diverticulosis of intestine, part unspecified, without perforation or abscess without bleeding, M25.522 - Pain in left elbow, Z01.89 - Encounter for other specified special examinations, Z13.220 - Encounter for screening for lipoid disorders Lipid Panel Today K57.90 - Diverticulosis of intestine, part unspecified, without perforation or abscess without bleeding, M25.522 - Pain in left elbow, Z01.89 - Encounter for other specified special examinations Referrals Orthopedics Referral M25.522 - Pain in left elbow
[2024-09-27 14:56] VITALS: BP 108/72; PULSE 69; RESP 16; O2SAT 97; BMI 23.4
== END 2024-09-27 15:41 | disposition home or self-care (01) ==
PROVIDERS: PCP Physician Assistant; Visit Provider Physician Assistant
DX: K57.90 Diverticulosis of intestine, part unspecified, without perforation or abscess without bleeding (principal); M25.522 Pain in left elbow

== ENCOUNTER → 2024-09-27 14:28 | Outpatient (BNVA) | payer BC, SELFPAY | PROVIDERS: PCP Physician Assistant; Visit Provider Physician Assistant | DX: M25.522 Pain in left elbow (principal); K57.90 Diverticulosis of intestine, part unspecified, without perforation or abscess without bleeding | CPT/HCPCS: 96127 ==

== ENCOUNTER 2024-10-02 16:13 | Outpatient (REF) | payer BC, SELFPAY ==
--- NOTE | ~2024-10-02 | XR_ITS ---
EXAMINATION: XR ELBOW, LEFT CLINICAL INFORMATION: M25.522 - Pain in left elbow COMPARISON: None available. TECHNIQUE: AP, lateral, and oblique views of the left elbow. FINDINGS: The bones and soft tissues are normal. No fracture or joint effusion. Alignment is anatomic. Joint spaces are maintained. XR/XR elbow LT min 3V IMPRESSION: Normal left elbow. Electronically signed by: Grady Brown MD 10/03/2024 10:58 AM ANNIKA BRAVO
== END 2024-10-02 16:14 | disposition home or self-care (01) ==
LOC: HO.HMGCX 16:13
PROVIDERS: PCP Orthopaedic Surgery; Visit Provider Physician Assistant
DX: M25.522 Pain in left elbow (principal)
CPT/HCPCS: 73080

== ENCOUNTER → 2024-10-02 16:16 | Outpatient (BNV) | payer BC, SELFPAY | PROVIDERS: PCP Orthopaedic Surgery; Visit Provider Radiology Diagnostic Radiology | DX: M25.522 Pain in left elbow (principal) | CPT/HCPCS: 73080 ==

== ENCOUNTER 2024-11-13 10:59 | Outpatient (AMB) | payer BC, SELFPAY ==
--- NOTE | 2024-11-13 11:25 | A.OFFVIS_ITS ---
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 Patient reports his pain presented about 5 months ago when he was working out, he thinks he pulled a muscle. He was seen by his PCP due to ongoing discomfort with lifting. His discomfort is located at the anterior aspect of elbow. No numbness or tingling. He has discomfort with lifting at work and with benching pressing at the gym. No previous tx. 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 He denies specific injury however he does mentioned that when he was at the gym doing a bicep curl he noticed some pain along the lateral epicondyle. He states there is a functioning performs at work where he has to supinate and hold a form of pressure which exacerbates his symptoms. He denies numbness or tingling. [facility] Medical History Diverticular disease Viral syndrome Diverticulitis large intestine w/o perforation or abscess w/bleeding Smoker Abnormal CT scan, gastrointestinal tract Colitis Recent surgical procedure on lower extremity History of diverticulitis Surgical History Hx of colonoscopy Hx of esophagogastroduodenoscopy S/P hernia repair History of facial surgery Family History (Updated 09/27/24 @ 14:51 by Evelia Wu CMA) Father No problems noted. Mother No problems noted. 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 No erythema or swelling. ROM full without pain. Tenderness over the lateral epicondyle and pain with resisted wrist extension. NVI. Results Reviewed Results Reviewed: X-rays of the left elbow obtained on 10/02/2024 are negative for any acute or chronic abnormalities. Assessment & Plan Assessment & Plan (1) Left lateral epicondylitis: Code(s): M77.12 - Lateral epicondylitis, left elbow Category: Medical Plan We discussed options which include PT, NSAIDs and injections. She will defer on the injection today and proceed with PT and NSAIDs. If symptoms persist she will contact me for an injection, otherwise, prn. Coding Level of Care Code New Pt Level 3 (89108) Complex EM visit Add On G2211 Diagnoses Left lateral epicondylitis M77.12
[2024-11-13 11:30] VITALS: BMI 23.7
== END 2024-11-13 11:48 | disposition home or self-care (01) ==
LOC: HO.HOS 11:00
PROVIDERS: PCP Physician Assistant; Visit Provider Physician Assistant
DX: M77.12 Lateral epicondylitis, left elbow (principal)
CPT/HCPCS: 99203